=== PATIENT | male | born 1955 | race Caucasian/White ===

== ENCOUNTER 2020-09-21 07:15 | Day surgery (SDC) | payer BC, SELFPAY ==
[2020-09-16 09:31] VITALS: BMI 27.8
[2020-09-16 13:01] VITALS: BMI 27.8
--- NOTE | 2020-09-18 09:28 | P.CONAN_ITS ---
Documented by User: Helen Caban 09/18/20 09:29 HPI - Anesthesia Eval Consult details Narrative: 65yo M for Colonoscopy FORMERLY [facility], [facility] Past Medical History Medical History Hx of renal calculi Post-operative nausea and vomiting Surgical History Surgical History History of prostate surgery Hx of colonoscopy Hx of lithotripsy Social History Social History Smoking Status: Former smoker Use of substances other than those prescribed or required for medical reasons: No Have you been hit, kicked, punched, or otherwise hurt by someone within the past year? If so, by whom?: No Advance Directives Information Provided: No Recently lost weight without trying: No Meds Allergies Allergy/AdvReac Type Severity Reaction Status Date / Time procaine [From Novocain] Allergy Mild RASH Verified 09/16/20 09:35 FRESH FRUIT Allergy Severe ANAPHYLAXIS Uncoded 07/30/20 15:08 Home Medications Medication Instructions Recorded Confirmed Type multivitamin 1 tab PO DAILY 09/16/20 09/16/20 History Exam Exam Date and Time: September 18, 2020 0928 Height,Weight and Vital Signs: Height 5 ft 9 in Weight 85.729 kg Pertinent Lab Results Pertinent Lab Results: Laboratory Tests 04/29/20 04/29/20 06:43 06:43 RBC 4.97 Hgb 15.7 Hct 45.2 Plt Count 204 Sodium 139 Potassium 4.5 Chloride 104 BUN 21 H Creatinine 1.01 Assessment and Plan Assessment Anesthesia Assessment: Chart Reviewed Documented by User: Jesu Morales 09/21/20 08:10 [facility], [facility] Past Medical History Medical History Hx of renal calculi Post-operative nausea and vomiting Surgical History Surgical History History of prostate surgery Hx of colonoscopy Hx of lithotripsy Social History Social History Smoking Status: Former smoker Use of substances other than those prescribed or required for medical reasons: No Have you been hit, kicked, punched, or otherwise hurt by someone within the past year? If so, by whom?: No Advance Directives Information Provided: No Recently lost weight without trying: No Meds Allergies Allergy/AdvReac Type Severity Reaction Status Date / Time procaine [From Novocain] Allergy Mild RASH Verified 09/16/20 09:35 FRESH FRUIT Allergy Severe ANAPHYLAXIS Uncoded 07/30/20 15:08 Home Medications Medication Instructions Recorded Confirmed Type multivitamin 1 tab PO DAILY 09/16/20 09/16/20 History Exam Airway Mallampati Class: II TM Dist: >3cm Neck ROM: Full Loose/Missing/Broken Teeth: No Heart: [id number] Lungs: cta b/l Assessment and Plan Assessment Anesthesia Assessment: Anesthesia Plan Discussed, PAT Visit and Chart Reviewed Final Anesthetic Review NPO: Yes ASA Class: II Final Preanesthetic Review: No Changes in Pt Med Stat, Meds/Allgs Chart Reviewed, Consent Obtained/Reviewed and Anes Risks/Benef Reviewed Patient Risk: Low Procedure Risk: Low Assessment/Block/Sedation in SS: Assess/Block/Sedation-SS Anesthetic Plan Anesthetic Plan: MAC: Disposition: Standard PACU
[2020-09-21 08:03] VITALS: BP 128/80; PULSE 74; RESP 18; TEMP 36.2; O2SAT 95
[2020-09-21] MEDS: Lactated Ringers 1,000 ML 100 ML IVCONT (08:12)
[2020-09-21 09:46] VITALS: BP 96/63; PULSE 57; RESP 16; TEMP 36.1; O2SAT 95
--- NOTE | 2020-09-21 09:47 | PM.OP ---
Brief Operative Note Date of procedure: 09/21/20 Pre-op diagnosis: Screening Post-op diagnosis: other (Diverticulosis, Internal hemorrhoids) Procedure: Colonoscopy to cecum and TI Surgeon: Aiden Berg Anesthesia: MAC Estimated blood loss (mL): 0 Pathology: none sent Condition: stable Disposition: PACU
[2020-09-21 09:59] VITALS: BP 111/76; PULSE 56; RESP 16; O2SAT 95
[2020-09-21 10:15] VITALS: BP 144/97; PULSE 61; RESP 16; TEMP 36.1; O2SAT 95
--- NOTE | 2020-09-21 10:35 | HO.POSTANES ---
Post Anesthesia Evaluation Post Anesthesia Evaluation Vital Signs: Vital Signs Temp Pulse Resp BP Pulse Ox 09/21/20 10:15 97.0 F 61 16 144/97 H 95 09/21/20 09:59 56 16 111/76 95 09/21/20 09:46 97.0 F 57 16 96/63 95 09/21/20 08:03 97.2 F 74 18 128/80 95 Anesthesia: Monitored Mental Status: Awake Pain Control: Satisfactory Nausea/Vomiting: None Hydration: Adequate Anesthesia-Related Issues: No Anes. Related Issues
--- NOTE | 2020-09-21 10:46 | OP_ITS ---
SURGEON: Aiden Berg MD INDICATIONS: The patient presents for evaluation of colorectal cancer screening. Full consent has been obtained from him for this, including risks of bleeding and perforation. PREOPERATIVE DIAGNOSIS: Colorectal cancer screening. POSTOPERATIVE DIAGNOSIS: PROCEDURE PERFORMED: ESTIMATED BLOOD LOSS: COMPLICATIONS: ANESTHESIA: Monitored anesthesia care. ASSISTANTS: SPECIMENS: POSTOPERATIVE DIAGNOSES: Colorectal cancer screening, sigmoid diverticulosis, and small internal hemorrhoids. PROCEDURES PERFORMED: Colonoscopy to cecum and terminal ileum. DESCRIPTION OF PROCEDURE: The patient was placed in the left lateral decubitus position. The digital rectal exam revealed no abnormalities. The Olympus video pediatric colonoscope was entered into the rectum, advanced easily to the cecum. Once in the cecum, I did identify normal-appearing cecal pouch with appendiceal orifice and a normal-appearing ileocecal valve. The terminal ileum was cannulated and appeared normal. The scope was withdrawn back in the colon. The entire cecum and ileocecal valve appeared normal. The scope was slowly withdrawn assessing all mucosal surfaces carefully. Preparation was excellent. I did not visualize any sign of polyps, colitis, or angiodysplasia. There was a mild amount of sigmoid diverticulosis. In the rectum, scope was retroflexed visualizing small internal hemorrhoids, but no other pathology. The rectal mucosa appeared normal. The scope was straightened and withdrawn from the patient. He tolerated the procedure well and was returned to the recovery area in stable condition. IMPRESSION: 1. Mild sigmoid diverticulosis. 2. Small internal hemorrhoids. PLAN: Given the negative exam and negative family history, I would recommend a repeat colonoscopy in 10 years for further screening. He will otherwise see me on a p.r.n. basis. Aiden Berg MD RMJerel/AMANDA / [phone]
== END 2020-09-21 10:45 | disposition home or self-care (01) ==
PROVIDERS: PCP Internal Medicine; Visit Provider Internal Medicine
PROC: 0DJD8ZZ Inspection of Lower Intestinal Tract, Via Natural or Artificial Opening Endoscopic (ICD-10-PCS; CPT 45378; principal; 2020-09-21 08:30)
DX: Z12.11 Encounter for screening for malignant neoplasm of colon (principal); K57.30 Diverticulosis of large intestine without perforation or abscess without bleeding; K64.8 Other hemorrhoids; Z87.442 Personal history of urinary calculi; Z87.891 Personal history of nicotine dependence
CPT/HCPCS: 45378

== ENCOUNTER 2020-10-13 06:34 | Outpatient (REF) | payer BC, SELFPAY ==
[2020-10-13 07:58] LABS: PSA,Total (Free>4and<10) 12.52 ng/mL (0.00-4.00)
== END 2020-10-13 06:35 | disposition home or self-care (01) ==
LOC: HO.LAB 06:34
PROVIDERS: PCP Internal Medicine; Visit Provider Urology
DX: R97.20 Elevated prostate specific antigen [PSA] (principal)
CPT/HCPCS: 84153

== ENCOUNTER → 2020-12-07 08:55 | Outpatient (BNVA) | payer BC, SELFPAY | PROVIDERS: PCP Internal Medicine; Visit Provider Urology ==

== ENCOUNTER 2021-01-14 08:24 | Outpatient (REF) | payer MEDICARE, SELFPAY ==
[2021-01-14 08:59] VITALS: BMI 27.7
[2021-01-14 09:00] VITALS: BP 122/72; PULSE 71; RESP 16; TEMP 36.6; O2SAT 96
--- NOTE | 2021-01-14 09:26 | PM.OP ---
Brief Operative Note Date of Service: 01/14/21 Pre-op diagnosis: elevated PSA Post-op diagnosis: same Procedure: TRUS - measure - prostate berve block - prostate biopsy Surgeon: Kelton Griffith MD Anesthesia: MAC and local Estimated blood loss (mL): 0 Pathology: other (12 core prostate) Condition: stable Disposition: same day
--- NOTE | 2021-01-14 09:27 | W.PM.OPN ---
Operative Note Operative Note Date of Service: 01/14/21 Narrative: Preoperative diagnosis: Elevated PSA Postoperative diagnosis: Elevated PSA Procedure: 1. transrectal ultrasound measurement of prostate 2. transrectal ultrasound-guided pudendal nerve block 3. transrectal ultrasound-guided prostate biopsy 12 core Surgeon: Dr. Kelton Griffith Anesthetic: Local Indications for procedure: Elevated PSA Procedure: After informed consent was verified, the patient was brought into the procedure area and lay left-hand side down on the table. Patient identity confirmed. Perioperative antibiotics confirmed. Gel was placed per rectum Ultrasound probe was placed per rectum The prostate was measured in 3 dimensions Total volume equals 125 gm There were no cystic structures and no calcifications noted and the prostate was homogeneous in nature A ultrasound-guided pudendal nerve block was performed using 10 cc of 1% lidocaine. 8 cc was placed at the base and 2 cc of the apex. A 12 core biopsy was performed with 6 cores each side. Two cores were taken at the apex, mid and base. Cores were spaced between lateral and medial. He tolerated the procedure well. Was able to ambulate to bathroom after 5 minutes. Printed instructions regarding antibiotic use and common side effects such as low-grade temperature and bleeding were given.
== END 2021-01-14 08:25 | disposition home or self-care (01) ==
LOC: HO.MS 08:24
PROVIDERS: PCP Internal Medicine; Visit Provider Urology
PROC: (CPT 55700; principal; 2021-01-14 08:50)
DX: R97.20 Elevated prostate specific antigen [PSA] (principal); Z87.442 Personal history of urinary calculi
CPT/HCPCS: 55700; 76942; 88305

== ENCOUNTER → 2021-01-22 14:13 | Outpatient (BNVA) | payer MEDICARE, SELFPAY | PROVIDERS: PCP Internal Medicine; Visit Provider Urology | CPT/HCPCS: Q3014 ==

== ENCOUNTER 2021-05-18 08:36 | Outpatient (REF) | payer MEDICARE, SELFPAY ==
[2021-05-18 09:52] LABS: PSA,Total (Free>4and<10) 12.52 ng/mL (0.00-4.00)
== END 2021-05-18 08:37 | disposition home or self-care (01) ==
LOC: HO.LAB 08:36
PROVIDERS: PCP Internal Medicine; Visit Provider Urology
DX: N40.1 Benign prostatic hyperplasia with lower urinary tract symptoms (principal); N13.8 Other obstructive and reflux uropathy; R97.20 Elevated prostate specific antigen [PSA]
CPT/HCPCS: 36415; 84153

== ENCOUNTER → 2021-05-28 14:32 | Outpatient (BNVA) | payer MEDICARE, SELFPAY | PROVIDERS: PCP Internal Medicine; Visit Provider Urology | DX: Z13.89 Encounter for screening for other disorder (principal) | CPT/HCPCS: Q3014 ==

== ENCOUNTER → 2021-06-29 13:52 | Outpatient (BNVA) | payer MEDICARE, SELFPAY | PROVIDERS: PCP Internal Medicine; Referring Provider Internal Medicine; Visit Provider Surgery | DX: K40.90 Unilateral inguinal hernia, without obstruction or gangrene, not specified as recurrent (principal) | CPT/HCPCS: 99202 ==

== ENCOUNTER 2021-07-21 06:09 | Day surgery (SDC) | payer MEDICARE, SELFPAY ==
--- NOTE | 2021-07-20 09:05 | HO.ANESPROP2 ---
Documented by User: Helen Caban NP 07/20/21 09:06 HPI - Anesthesia Eval Consult details Narrative: 66yo M for Right Hernia Repair Inguinal with Mesh PMFSH Active Problems Active Problems: All Active Problems (Updated 07/13/21 @ 15:42 by Angeli Monroy RN) BPH w urinary obs/LUTS (Acute) Inguinal hernia (Acute) Right inguinal hernia (Acute) Urgency of micturition (Acute) History of renal calculi (Acute) Elevated PSA (Acute) Past Medical History Medical History (Updated 07/13/21 @ 15:42 by Angeli Monroy RN) Elevated PSA History of non-ST elevation myocardial infarction (NSTEMI) History of renal calculi Post-operative nausea and vomiting Urgency of micturition Family History Family History Mother No problems noted. Father No problems noted. Surgical History Surgical History (Updated 07/13/21 @ 15:50 by Angeli Monroy RN) History of prostate surgery History of tonsillectomy Hx of colonoscopy Hx of lithotripsy Social History Social History Housing: House Alcohol intake: current Alcohol intake frequency: holidays/special occasions only Patient Tobacco Use Status: Never used Tobacco Second Hand Smoke Exposure: No Are you DNR?: No Advance Directives: No Advance Directives Information Provided: Yes Advance Directives on File: No service: No Current occupational status: retired Meds Allergies Allergy/AdvReac Type Severity Reaction Status Date / Time procaine [From Novocain] Allergy Mild RASH Verified 07/13/21 15:53 FRESH FRUIT Allergy Severe ANAPHYLAXIS Uncoded 07/13/21 15:53 Home Medications Medication Instructions Recorded Confirmed Last Taken Type multivitamin 1 tab PO DAILY 09/16/20 07/13/21 Unknown History Exam Exam Date and Time: July 20, [id number] Assessment and Plan Assessment Anesthesia Assessment: Chart Reviewed Documented by User: Oliver Langley MD 07/21/21 07:11 PMF Past Medical History Medical History (Updated 07/13/21 @ 15:42 by Angeli Monroy, JODY) Elevated PSA History of non-ST elevation myocardial infarction (NSTEMI) History of renal calculi Post-operative nausea and vomiting Urgency of micturition Family History Family History Mother No problems noted. Father No problems noted. Surgical History Surgical History (Updated 07/13/21 @ 15:50 by Angeli Monroy RN) History of prostate surgery History of tonsillectomy Hx of colonoscopy Hx of lithotripsy Social History Social History Housing: House Alcohol intake: current Alcohol intake frequency: holidays/special occasions only Patient Tobacco Use Status: Never used Tobacco Second Hand Smoke Exposure: No Are you DNR?: No Advance Directives: No Advance Directives Information Provided: Yes Advance Directives on File: No service: No Current occupational status: retired Meds Allergies Allergy/AdvReac Type Severity Reaction Status Date / Time procaine [From Novocain] Allergy Mild RASH Verified 07/13/21 15:53 FRESH FRUIT Allergy Severe ANAPHYLAXIS Uncoded 07/13/21 15:53 Home Medications Medication Instructions Recorded Confirmed Last Taken Type multivitamin 1 tab PO DAILY 09/16/20 07/13/21 Unknown History Exam Airway Mallampati Class: I TM Dist: >3cm Neck ROM: Full
[2021-07-21] VITALS (10 sets, daily range): BP systolic 108–125; BP diastolic 70–80; PULSE 58–85; RESP 14–18; TEMP 36.2–36.4; O2SAT 95–99; BMI 26.9
[2021-07-21] MEDS: Lactated Ringers 1,000 ML 100 ML IVCONT (06:35)
--- NOTE | 2021-07-21 08:14 | W.PM.OPN ---
Operative Note Operative Note Date of Service: 07/21/21 Narrative: Preoperative diagnosis: Right inguinal hernia Postoperative diagnosis: Same Procedure: Repair of right inguinal hernia with mesh Surgeon: Lawrence Quezada MD Pulmonary Physician: Melanie Maravilla PA-C Anesthesia: General LMA Indications for procedure: 66-year-old male presenting a hernia in the right groin which increases with Valsalva and reduces with light pressure Operative findings: Indirect right inguinal hernia Specimen: Lipoma of the cord, right Estimated blood loss: 2 mL Complications: None Procedure details: Patient was brought to the OR and placed in a supine position. After administering general anesthesia the patient's abdomen was prepped with ChloraPrep and draped in a sterile fashion. A surgical time-out was called the consent confirmed. Patient received preoperative antibiotics and Venodyne boots were in place. Local anesthesia consisting of 0.5% Sensorcaine with epinephrine was then infiltrated over the right inguinal ligament. Incision was then made with a scalpel carried out through subcutaneous tissue, past Tab's fascia, and up to the external oblique aponeurosis. Additional local was infiltrated below the external oblique aponeurosis. This was then incised with a scalpel wide with the Metzenbaum scissors. The spermatic cord was then dissected free from the surrounding inguinal canal. This was retracted using a Joan drain. The floor of the inguinal canal was found to be weak but no definite hernia was identified. Fibers of the cremasteric muscle were then and a hernia identified through the indirect space. A lipoma of the cord was dissected free down to the internal ring. This was then ligated with a 3-0 Polysorb suture. This was excised and sent to pathology for further examination. Attention was then directed to the floor of the inguinal canal. The internal oblique aponeurosis and transversalis aponeurosis was then incised with the lead electrocautery in the preperitoneal space entered. This was further dissected using an open Ray-Magalys sponge. A large extended PHS mesh was then obtained. The circular underlay was deployed into the preperitoneal space. The overlay was then secured to the pubic tubercle conjoined tendon, and shelving edge of the inguinal ligament using a 0 Polysorb suture. A slit was made in the mesh and the mesh wrapped around the spermatic cord at the internal ring. This was then secured to the shelving edge of the inguinal ligament using the 0 Polysorb suture. The wounds were then irrigated with saline solution. Additional local was infiltrated at this time. External oblique aponeurosis was then reapproximated using a 2 0 Polysorb suture. Tab's fascia and dermis reapproximated using interrupted 3-0 Polysorb sutures. Skin was closed using a running subcuticular 4-0 Polysorb suture. Steri-Strips 2 x 2 gauze and Tegaderm were then applied. The patient tolerated the procedure well. Sponge, instrument, needle counts reported as correct. The patient was transferred to PACU in stable condition.
--- NOTE | 2021-07-21 08:20 | MHC.SHP ---
Pre-Procedural Eval Section A Date of Service: 07/21/21 The patient is an INPATIENT: No Changes since office visit: Yes Patient answered all questions; No Cold of Flu in the past 2 weeks, No New Medical Problems and No Changes in Medication The History & Physical has been completed within 30 days and I have reviewed it.: Yes Section B Chief Complaint: Inguinal Hernia Allergies: Allergies Allergy/AdvReac Type Severity Reaction Status Date / Time procaine [From Novocain] Allergy Mild RASH Verified 07/13/21 15:53 FRESH FRUIT Allergy Severe ANAPHYLAXIS Uncoded 07/13/21 15:53 Plan Diagnosis/Plan: Unchanged I have reviewed the history and physical and performed a pertinent physical examination on my patient. No changes have occurred unless specified.
[2021-07-21] MEDS: Acetaminophen 325 MG TABLET 650 MG PO (08:55)
[2021-07-21] MEDS: oxyCODONE HCl Immed Release 5 MG TABLET PO (08:55)
== END 2021-07-21 11:55 | disposition home or self-care (01) ==
PROVIDERS: PCP Internal Medicine; Visit Provider Surgery
PROC: (CPT 49505; principal; 2021-07-21 07:30)
DX: K40.90 Unilateral inguinal hernia, without obstruction or gangrene, not specified as recurrent (principal); D17.6 Benign lipomatous neoplasm of spermatic cord
CPT/HCPCS: 49505; 55520; 88304; C1781; J0690; J1100; J2250; J2405; J3010

== ENCOUNTER → 2021-07-29 09:32 | Outpatient (BNVA) | payer MEDICARE, SELFPAY | PROVIDERS: PCP Internal Medicine; Referring Provider Internal Medicine; Visit Provider Surgery | DX: K40.90 Unilateral inguinal hernia, without obstruction or gangrene, not specified as recurrent (principal) | CPT/HCPCS: 99212 ==

== ENCOUNTER → 2021-09-02 10:06 | Outpatient (BNVA) | payer MEDICARE, SELFPAY | PROVIDERS: PCP Internal Medicine; Referring Provider Internal Medicine; Visit Provider Surgery | DX: Z48.815 Encounter for surgical aftercare following surgery on the digestive system (principal); Z87.19 Personal history of other diseases of the digestive system | CPT/HCPCS: 99212 ==

== ENCOUNTER 2021-09-20 09:35 | Outpatient (REF) | payer MEDICARE, SELFPAY ==
--- NOTE | ~2021-09-20 | XR_ITS ---
EXAMINATION: XR CERVICAL SPINE CLINICAL INFORMATION: Cervicalgia. COMPARISON: Cervical spine done on 02/24/2013. TECHNIQUE: 3 views of the cervical spine were obtained. FINDINGS: Moderate to severe degenerative spondylosis related changes are noted at C5-C6 and mild to moderate degenerative spondylosis at C4-C5 and C6-C7, shows progression since 02/24/2013. The heights of the cervical vertebrae are well-maintained. The remainder of the disc spaces are maintained. Posterior appendages are intact. Facet joint arthritic changes are noted bilaterally. The spinal soft tissues are unremarkable. The C1-C2 alignment is intact. Both lung apices are clear. XR/XR cervical spine 2V IMPRESSION: Multilevel degenerative spondylosis, shows progression since prior study dated 02/24/2013.
== END 2021-09-20 09:36 | disposition home or self-care (01) ==
LOC: HO.XRAY 09:35
PROVIDERS: PCP Internal Medicine; Visit Provider Internal Medicine
DX: M54.2 Cervicalgia (principal)
CPT/HCPCS: 72040

== ENCOUNTER 2022-05-18 07:12 | Outpatient (REF) | payer MEDICARE, SELFPAY ==
[2022-05-18 08:28] LABS: PSA,Total (Free>4and<10) 12.89 ng/mL (0.00-4.00)
== END 2022-05-18 07:13 | disposition home or self-care (01) ==
LOC: HO.LAB 07:12
PROVIDERS: PCP Internal Medicine; Visit Provider Urology
DX: Z12.5 Encounter for screening for malignant neoplasm of prostate (principal); N13.8 Other obstructive and reflux uropathy; N40.1 Benign prostatic hyperplasia with lower urinary tract symptoms
CPT/HCPCS: 36415; 84153

== ENCOUNTER → 2022-05-26 10:02 | Outpatient (BNVA) | payer MEDICARE, SELFPAY | PROVIDERS: PCP Internal Medicine; Visit Provider Urology | DX: R97.20 Elevated prostate specific antigen [PSA] (principal); N40.1 Benign prostatic hyperplasia with lower urinary tract symptoms; N13.8 Other obstructive and reflux uropathy | CPT/HCPCS: Q3014 ==

== ENCOUNTER 2022-09-12 07:38 | Outpatient (REF) | payer MEDICARE, SELFPAY ==
[2022-09-12 09:28] LABS: PSA,Total (Free>4and<10) 12.15 ng/mL (0.00-4.00)
== END 2022-09-12 07:39 | disposition home or self-care (01) ==
LOC: HO.LAB 07:38
PROVIDERS: PCP Internal Medicine; Visit Provider Urology
DX: R97.20 Elevated prostate specific antigen [PSA] (principal); Z12.5 Encounter for screening for malignant neoplasm of prostate
CPT/HCPCS: 36415; 84153

== ENCOUNTER → 2022-09-27 08:51 | Outpatient (BNVA) | payer MEDICARE, SELFPAY | PROVIDERS: PCP Internal Medicine; Visit Provider Urology | DX: N40.1 Benign prostatic hyperplasia with lower urinary tract symptoms (principal); N13.8 Other obstructive and reflux uropathy; R97.20 Elevated prostate specific antigen [PSA]; Z87.442 Personal history of urinary calculi | CPT/HCPCS: 99212 ==

== ENCOUNTER 2022-12-22 07:08 | Outpatient (REF) | payer MEDICARE, SELFPAY ==
--- NOTE | 2022-12-22 07:14 | ECG_ITS ---
Test Reason : palpitations Blood Pressure : / mmHG Vent. Rate : 081 BPM Atrial Rate : 081 BPM P-R Int : 150 ms QRS Dur : 088 ms QT Int : 368 ms P-R-T Axes : 056 075 068 degrees QTc Int : 427 ms Normal sinus rhythm Normal ECG When compared with ECG of 29-MAR-2013 19:36, No significant change was found Referred By: Forrest Butterfield Electronically Signed By:REYES MONET MD
[2022-12-22 07:16] LABS: MANUAL DIFF FLAG NO
[2022-12-22 07:43] LABS: Basophils Percent Auto 0.8 % (0-2); Eosinophils Absolute Auto 0.1 X10*3/uL (0.0-0.4); Eosinophils Percent Auto 3.6 % (0-4); Hemoglobin 15.8 g/dl (14.0-18.0); Lymphocytes Absolute Auto 1.3 X10*3/uL (1.2-4.9); Lymphocytes Percent Auto 34.4 % (20-40); Mean Corpuscular HGB Conc 34.3 g/dl (31.0-36.0); Mean Corpuscular Hemoglobin 31.2 pg (27.0-33.0); Mean Corpuscular Volume 90.7 fL (80.0-98.0); Mean Platelet Volume 10.2 fL (9.4-12.4); Monocytes Absolute Auto 0.3 X10*3/uL (0.1-1.2); Monocytes Percent Auto 8.7 % (2-11); Neutrophils Percent Auto 52.5 % (45-73); Platelet Count 215 X10*3/uL (160-400); Red Blood Count 5.07 X10*6/uL (4.60-5.80); Red Cell Distribution Width 12.9 % (11.0-16.0); White Blood Count 3.9 X10*3/uL (4.8-10.8)
[2022-12-22 09:01] LABS: Alanine Aminotransferase 27 U/L (0-40); Albumin Level 4.6 g/dL (3.5-5.0); Alkaline Phosphatase 65 U/L (39-117); Anion Gap 18 (12-20); Aspartate Amino Transferase 22 U/L (5-37); Blood Urea Nitrogen 18 mg/dL (9-16); Carbon Dioxide 24 mmol/L (22-29); Chloride 104 mmol/L (96-108); Cholesterol 193 mg/dL; Estimated Glomerular Filt Rate > 60; Glucose Fasting 96 mg/dL (60-99); HDL Cholesterol 47 mg/dL; LDL Cholesterol Calculated 122 mg/dl; Potassium 4.7 mmol/L (3.3-5.1); Sodium 141 mmol/L (135-145); Thyroid Stimulating Hormone 1.57 uIU/mL (0.32-4.0); Total Protein 6.9 g/dL (6.5-8.0); Triglycerides 122 mg/dL
[2022-12-22 09:17] LABS: Calcium 9.8 mg/dL (8.4-10.2)
== END 2022-12-22 07:09 | disposition home or self-care (01) ==
LOC: HO.LAB 07:08
PROVIDERS: PCP Internal Medicine; Visit Provider Internal Medicine
DX: R00.2 Palpitations (principal); E03.9 Hypothyroidism, unspecified; E78.5 Hyperlipidemia, unspecified; D64.9 Anemia, unspecified; N28.9 Disorder of kidney and ureter, unspecified
CPT/HCPCS: 36415; 80053; 80061; 84443; 85025; 93005

== ENCOUNTER → 2023-03-20 14:17 | Outpatient (BNVA) | payer MEDICARE, SELFPAY | PROVIDERS: PCP Internal Medicine; Referring Provider Internal Medicine; Visit Provider Internal Medicine | DX: R00.2 Palpitations (principal) | CPT/HCPCS: 99202 ==

== ENCOUNTER → 2023-04-11 07:55 | Outpatient (REF) | payer MEDICARE, SELFPAY ==
--- NOTE | 2023-04-11 07:59 | CA_ITS ---
Transthoracic Echocardiogram Patient (Last, First, Middle): Carrington Pineda, Gender: Male Date of : 1955 Age: 67 Procedure Date: 04/11/2023 Procedure Type: Transthoracic Echocardiogram Location: OP Height: 175.26 cm Weight: 86.18 kg BSA: 2.02 m2 Heart Rate: bpm BP: 122 / 78 mmHg Chiseler Head: MAXIMO Referring MD: Juan Antonio Edwards MD Materials Management Supervisor: Oumar Melo MD Symptoms: R00.2 - Palpitations Study Quality: Fair with contrast ECG Rhythm: Sinus Conclusions: - 1. Normal LV systolic function with mild LVH with grade 1 diastolic dysfunction 2. Moderately dilated left atrium 3. Normal cardiac valvular Dopplers 4. Normal measured RV systolic pressure 5. No gross pericardial effusion Findings Procedure Information Contrast agent, definity, is being given per protocol without apparent complications. Left Ventricle Normal left ventricular size and systolic function. There is mildly increased left ventricular wall thickness. The visually estimated ejection fraction is between 55-60%. Spectral Doppler is indicative of an impaired relaxation filling pattern. E/E prime ratio is <8, consistent with normal filling pressures. Evidence suggests grade I (mild) diastolic dysfunction. Right Ventricle The right ventricle was not well visualized. There is normal right ventricular systolic function. Atria The left atrium is moderately dilated. There is no evidence of interatrial shunt. The right atrium is likely dilated. Aortic Valve The aortic valve was not well visualized. There is mild calcification of the aortic valve. There is no aortic valve stenosis. There is no aortic valve regurgitation. Mitral Valve There is mild anterior and posterior mitral leaflet thickening. There is mild mitral valve regurgitation. There is no mitral valve stenosis. Pulmonic Valve The pulmonic valve was not well visualized. Tricuspid Valve Likely normal tricuspid valve structure and function. The right ventricular systolic pressure is 11 mmHg. There is no evidence of pulmonary hypertension. Great Vessels The pulmonary artery was not well visualized. There is mild dilatation of the ascending aorta measuring 3.80 cm. Venous The inferior vena cava is normal in size and collapses greater than 50% with inspiration. Pericardium/Pleural There is no evidence of pericardial effusion. Prior Study Comparison no previous study in last 5 years for comparison Measurements 2D Linear Measurements IVSd: 1.20 0.6-0.9/0.6-1.0 cm LVIDd: 4.70 3.9-5.3/4.2-5.9 cm LVIDd Index: 2.33 2.4-3.2/2.2-3.1 cm/m2 LVIDs: 3.58 2.0-3.6 cm LVPWd: 1.24 0.7-1.1 cm LA Diam: 3.70 2.7-3.8/3.0-4.0 cm LAIDs Index: 1.83 1.5-2.3 cm/m2 LV Mass: 270.58 67-162/88-224 g LV Mass Index: 133.95 43-95/49-115 g/m2 LVOT Diam: 2.40 3.0+(-)1.3 cm 2D Systolic Function EF 4C: 54.70 >55% EF 2C: 57.40 >55% EF BiP: 55.90 >55% Mitral Valve MV Pk E: 0.51 MV PK A: 0.67 MV Decel Time: 218.00 E/A: 0.80 E'Lateral: 6.31 E'Medial: 5.55 E/E' Med: 9.30 E/E' Lat: 8.10 PHT: 64.00 MVA PHT: 3.44 Decel Stark: 2.36 Aortic Valve AoV Pk Giovanny: 1.05 AoV Mn Giovanny: 0.80 AoV VTI: 0.25 AoV Pk Grad: 4.00 Aov Mn Grad: 3.00 ALEXIS Cont.VTI: 3.45 LVOT LVOT Pk Giovanny: 0.87 LVOT Mn Giovanny: 0.61 LVOT VTI: 0.19 LVOT Pk Grad: 3.00 LVOT Mn Grad: 2.00 LVOT Diam: 2.40 LVOT Area: 4.52 Diastolic Function MV Pk E: 0.51 MV Pk A: 0.67 E/A: 0.80 E'Medial: 5.55 E/E' Med: 9.30 E' Laterial: 6.31 E/E' Lat: 8.10 Right Ventricle TAPSE (mm): 23.50 TVS' Giovanny: 13.70 Tricuspid Valve TR Pk Giovanny: 1.42 TR Pk Grad: 8.00 RA Press: 3.00 RVSP: 11.00 Great Vessels Aorta Sinus of Valsalva: 3.90 2.0-3.[address] Ridge: 3.12 1.7-3.4 cm Ao Asc: 3.80 2.1-3.4 cm Ao Arch: 3.40 Updated in Other Vendor System with Status of Final Oumar Melo MD electronically signed on 04/11/2023 12:19:15 PM with status of Final
--- NOTE | 2023-04-11 07:59 | HM_ITS ---
* Total monitoring time 7 days. * Underlying rhythm is sinus with an average ventricular rate of 80/Min. * Atrial fibrillation versus flutter burden 3.8%. Longest episode 5 hours 38 minutes. Fastest episode 195/min. * Frequent supraventricular ectopy. * Rare PVCs. * No significant pauses or AV blocks. * Patient markers and diary events correlate with arrhythmia episodes above. MTDD
== END ==
LOC: HO.CARD 07:55
PROVIDERS: PCP Internal Medicine; Visit Provider Internal Medicine
DX: R00.2 Palpitations (principal)
CPT/HCPCS: 93242; 93306; Q9957

== ENCOUNTER 2023-05-26 13:21 | Outpatient (AMB) | payer MEDICARE, SELFPAY ==
[2023-05-26 13:38] VITALS: BP 115/80; PULSE 76; BMI 28.0
--- NOTE | 2023-05-26 13:38 | MHC.OFFVIS ---
Intake Vital Signs 05/26/23 13:38 Height 5 ft 9 in Weight 189 lb 9.561 oz BMI 28.0 BP 115/80 Blood Pressure Location Lt brachial Position Sitting Pulse 76 Intake Visit Reasons: 2 month f/up after testing per HS Intake Note: 2 month f/u after testing Supervisor Cd Area Required: No Allergies procaine [From Novocain] Allergy (Mild, Verified 05/26/23 13:46) RASH FRESH FRUIT Allergy (Severe, Uncoded 03/20/23 14:26) ANAPHYLAXIS Medication List - Last Reconciled 05/26/23 by Donna Cash, TOUR MANAGER-C betamethasone dipropionate 0.05% 1 appl topical DAILY PRN metoprolol succinate ER 25 mg PO DAILY multivitamin 1 tab PO DAILY HPI 2 month f/up after testing per HS HPI Details Carrington is a 67-year-old male with past medical history of Reported prior [place],heart palpitations who recently underwent further evaluation with CTA of coronary arteries, echocardiogram and Holter monitor and now presents for follow-up. Today he reports he has been noticing heart palpitations since last fall. There intermittent and can last 10 minutes to an hour. The episodes are random without any known triggers or pattern. When they resolved they do spontaneous loop without specific treatment. He feels well with no associated symptoms. He has not had any concerning chest discomfort, shortness of breath, dizziness, presyncope, syncope, falls. No PND, orthopnea or edema. He reports being physically active. Drinks decaf beverages. Takes meds as directed.. [facility] Medical History Elevated PSA History of non-ST elevation myocardial infarction (NSTEMI) History of renal calculi Post-operative nausea and vomiting Urgency of micturition Surgical History History of prostate surgery History of right inguinal hernia repair History of tonsillectomy Hx of colonoscopy Hx of lithotripsy S/P right inguinal hernia repair (07/21/21) Family History Mother No problems noted. Father No problems noted. Social History Housing: House Alcohol intake: current Alcohol intake frequency: holidays/special occasions only Patient Tobacco Use Status: Never used Tobacco e-Cigarette/Vaping Use: Never Used Second Hand Smoke Exposure: No service: No Current occupational status: retired Cognitive needs: No Hearing needs: No Vision needs: No Review of Systems ENT Reports dizziness Card Denies chest pain, Denies chest pain at rest, Denies chest pain with activity, Denies rapid heart rate, Denies pedal edema, Denies edema, Denies leg edema, Denies lightheadedness, Denies palpitations, Denies dyspnea, Denies dyspnea on exertion and Denies orthopnea Resp Denies cough, Denies dyspnea and Denies dyspnea on exertion GI Denies hematochezia and Denies change in stool character Musc Denies abnormal gait, Reports limited range of motion, Reports muscle cramps, Denies muscle weakness, Denies numbness, Denies radiating pain into limb, Denies stiffness and Denies tingling Neuro Denies abnormal gait, Reports dizziness, Denies numbness and Denies tingling Endo Denies palpitations Physical Exam Vital Signs: Last Vital Signs Pulse 76 05/26/23 13:38 BP 115/80 05/26/23 13:38 BMI result Body Mass Index 28.0 Const General: cooperative, healthy appearing, comfortable and no acute distress Orientation/consciousness: patient oriented x3 Neck Neck: Yes normal visual inspection Resp Effort & Inspection: normal respiratory effort Auscultation: clear to auscultation bilaterally, no crackles, no rales, no rhonchi and no wheezes Cardio Jugular venous distension: no JVD Rate: regular rate Rhythm: regular rhythm Heart sounds: S1 normal heart sound present, S2 normal heart sound present, no murmurs and no rubs Neuro General: patient oriented x3 Extrem General: Yes normal to inspection Psych Appearance: grossly normal Mental Status: mental status grossly normal Speech and movement: Normal speech and movement present Office Procedures EKG Details: Today, read by me, SR with PAC and nonspecific T wave abn, rate 76, QTc 465ms [id number], Complete Assessment & Plan Assessment & Plan (1) Intermittent palpitations: Code(s): R00.2 - Palpitations Plan: Report of intermittent heart palpitations as described above. Echocardiogram done 04/11/2023 shows EF 55-60%, grade 1 diastolic dysfunction, moderate dilated left atrium, normal valves. A Holter monitor done on 04/11 for 7 days shows sinus rhythm with average heart rate 80, atrial fibrillation 5.8% of time with longest episode 5 hours and 38 minutes with heart rate up to 195 max.. chads Vasc score of 1 with age. Following Holter reading he was started on metoprolol but tells me he did not start taking it as of yet. Instructed to take metoprolol XL 25 mg daily. Diagnosis of paroxysmal atrial fibrillation reviewed with him, stroke risk discussed. Instructed to call if he continues to have frequent palpitations and then metoprolol dose can be increased. On exam today his pulse rate is 76 and regular. He is not noticing heart palpitation at present. his history includes a prior NSTEMI and is part of his cardiac evaluation he underwent a CTA of the coronary arteries which showed normal coronaries. Patient was informed of this and all the above. Cardiology follow-up in 4-6 weeks to reassess frequency of AF episodes and determine if further treatment is warranted (2) Paroxysmal atrial fibrillation: Code(s): I48.0 - Paroxysmal atrial fibrillation Coding Level of Care Code Est Pt Level 4 (99275) Diagnoses Intermittent palpitations R00.2 Paroxysmal atrial fibrillation I48.0 CPT Codes EKG - CPT: [id number]-[id number], Complete ([id number]) Time Spent (min) 26 Comment chart review, document, interview, assess
== END 2023-05-26 14:38 | disposition home or self-care (01) ==
PROVIDERS: Visit Provider Nurse Practitioner Family
DX: R00.2 Palpitations (principal); I48.0 Paroxysmal atrial fibrillation
CPT/HCPCS: 93010; 99214

== ENCOUNTER → 2023-05-26 13:21 | Outpatient (BNVA) | payer MEDICARE, SELFPAY | PROVIDERS: Visit Provider Nurse Practitioner Family | DX: R00.2 Palpitations (principal); I48.0 Paroxysmal atrial fibrillation | CPT/HCPCS: 93005; 99212 ==

== ENCOUNTER 2023-07-10 09:43 | Outpatient (AMB) | payer MEDICARE, SELFPAY ==
--- NOTE | 2023-07-10 09:48 | A.OFFVIS_ITS ---
Intake Vital Signs 07/10/23 09:49 Height 5 ft 9 in Weight 192 lb 10.944 oz BMI 28.5 BP 110/80 Blood Pressure Location Lt brachial Position Sitting Pulse 56 Intake Visit Reasons: 4-6 WEEK FUP PER DC Intake Note: follow up Reservations Sales Supervisor Required: No Accompanied by: Self / Same As Patient Allergies procaine [From Novocain] Allergy (Mild, Verified 07/10/23 09:52) RASH FRESH FRUIT Allergy (Severe, Uncoded 07/10/23 09:52) ANAPHYLAXIS Medication List - Last Reconciled 07/10/23 by Juan Antonio Edwards MD betamethasone dipropionate 0.05% 1 appl topical DAILY PRN metoprolol succinate ER 25 mg PO DAILY multivitamin 1 tab PO DAILY HPI HPI Comments History of Present Illness Details Carrington returns for follow-up. Recently seen in consultation regarding palpitations. Then underwent monitoring that showed atrial fibrillation/flutter with rapid rates. He was started on beta-blockers. He states he still gets some palpitations. Not as much as before but reduced. No other cardiac complaints. He also underwent coronary CTA that shows no significant findings. Not yet on anticoagulation. [facility] Medical History Elevated PSA History of non-ST elevation myocardial infarction (NSTEMI) History of renal calculi Post-operative nausea and vomiting Urgency of micturition Surgical History History of prostate surgery History of right inguinal hernia repair History of tonsillectomy Hx of colonoscopy Hx of lithotripsy S/P right inguinal hernia repair (07/21/21) Family History Mother No problems noted. Father No problems noted. Social History Housing: House Alcohol intake: current Alcohol intake frequency: holidays/special occasions only Patient Tobacco Use Status: Never used Tobacco e-Cigarette/Vaping Use: Never Used Second Hand Smoke Exposure: No service: No Current occupational status: retired Cognitive needs: No Hearing needs: No Vision needs: No Review of Systems ENT Reports dizziness Card Denies chest pain, Denies chest pain at rest, Denies chest pain with activity, Denies rapid heart rate, Denies pedal edema, Denies edema, Denies leg edema, Denies lightheadedness, Denies palpitations, Denies dyspnea, Denies dyspnea on exertion and Denies orthopnea Resp Denies cough, Denies dyspnea and Denies dyspnea on exertion GI Denies hematochezia and Denies change in stool character Musc Denies abnormal gait, Reports limited range of motion, Reports muscle cramps, Denies muscle weakness, Denies numbness, Denies radiating pain into limb, Denies stiffness and Denies tingling Neuro Denies abnormal gait, Reports dizziness, Denies numbness and Denies tingling Endo Denies palpitations Physical Exam Vital Signs: Last Vital Signs Pulse 56 07/10/23 09:49 BP 110/80 07/10/23 09:49 BMI result Body Mass Index 28.5 Const General: comfortable and no acute distress Orientation/consciousness: patient oriented x3 HEENT Other: Unremarkable Head: Yes normal to inspection Neck Neck: Yes normal visual inspection Chest Chest palpation & inspection: normal inspection of the chest Resp Auscultation: clear to auscultation bilaterally Cardio Palpation: normal PMI Heart sounds: S1 normal heart sound present, S2 normal heart sound present, no gallops, no murmurs and no rubs GI Palpation (GI): Soft to palpation Back/Spine/Pelvis Other: unremarkable Skin General skin exam: no rashes or lesions noted Neuro General: patient oriented x3 Extrem General: Yes normal to inspection Psych Mental Status: mental status grossly normal Assessment & Plan Assessment & Plan (1) Paroxysmal atrial fibrillation: Code(s): I48.0 - Paroxysmal atrial fibrillation (2) Encounter for anticoagulation discussion and counseling: Code(s): Z71.89 - Other specified counseling Plan Cardiac studies reviewed. Echocardiogram with LVEF of 55-60%. Moderately dilated left atrium. Otherwise unremarkable. Holter shows underlying atrial fibrillation/flutter with rapid rate. Underlying rhythm is sinus. Overall burden of 3.8%. Coronary CTA reported normal. Overall, he is generally stable but still gets episodes. His blood pressure is on the lower side. We can try going up on the metoprolol from 25mg once a day to twice a day. If any side effects, will have to cut back. In that case, other options would be another agent like flecainide versus ablation. We discussed about both today. We will reassess in 3 months with another Holter. Otherwise, he does not have much of thromboembolic risk but still at age of 68, with fairly recurrent episodes, would still recommend starting anticoagulation. We discussed about the pros and cons and he is agreeable. Start Eliquis 5 mg b.i.d.. Follow-up in 3 months with another Holter. Orders: Orders ECG 7 day holter monitor 3 Months I48.0 - Paroxysmal atrial fibrillation Medications: New 2 metoprolol tartrate 25 mg PO BID 90 days 180 tabs 3RF apixaban (Eliquis) 5 mg PO BID 90 days 180 tabs 3RF Discontinued metoprolol succinate ER Discontinued Reason: Doctor's Order 25 mg PO DAILY 30 tabs 3RF Coding Level of Care Code Est Pt Level 4 (86545) Diagnoses Paroxysmal atrial fibrillation I48.0 Encounter for anticoagulation discussion and counseling Z71.89
[2023-07-10 09:49] VITALS: BP 110/80; PULSE 56; BMI 28.5
== END 2023-07-10 10:12 | disposition home or self-care (01) ==
PROVIDERS: PCP Internal Medicine; Referring Provider Internal Medicine; Visit Provider Internal Medicine
DX: I48.0 Paroxysmal atrial fibrillation (principal); Z71.89 Other specified counseling
CPT/HCPCS: 99214

== ENCOUNTER → 2023-07-10 09:43 | Outpatient (BNVA) | payer MEDICARE, SELFPAY | PROVIDERS: PCP Internal Medicine; Referring Provider Internal Medicine; Visit Provider Internal Medicine | DX: I48.0 Paroxysmal atrial fibrillation (principal); I21.4 Non-ST elevation (NSTEMI) myocardial infarction; Z71.89 Other specified counseling | CPT/HCPCS: 99212 ==

== ENCOUNTER 2023-09-20 07:57 | Outpatient (REF) | payer MEDICARE, SELFPAY ==
--- NOTE | ~2023-09-20 | US_ITS ---
EXAMINATION: US RETROPERITONEAL LIMITED (RENAL ONLY) CLINICAL INFORMATION: Personal history of urinary calculi. COMPARISON: Limited retroperitoneal (renal only) ultrasounds dated 10/03/2018 and 03/15/2016. CT abdomen and pelvis without and with contrast dated 01/05/2017. TECHNIQUE: Real-time imaging of the kidneys. FINDINGS: RIGHT KIDNEY: 11.2 x 4.9 x 5.8 cm (SAG x AP x TRV). The kidney is normal in size, contour, and echogenicity. Renal cortical thickness is normal. No renal calculi or hydronephrosis. Lower pole cyst measures 7 x 5 x 7 mm. Midpole cyst measures 0.8 x 1.0 x 0.9 cm. LEFT KIDNEY: 11.6 x 5.7 x 4.6 cm (SAG x AP x TRV). The kidney is normal in size, contour, and echogenicity. Renal cortical thickness is normal. No renal calculi or hydronephrosis. Lower pole cyst measures 2.3 x 2.7 x 2.8 cm. Scattered hepatic cysts. These were previously demonstrated on CT performed 01/05/2017. US/US renal BI IMPRESSION: Bilateral renal cysts. No further imaging follow-up is needed.
== END 2023-09-20 07:58 | disposition home or self-care (01) ==
LOC: HO.US 07:57
PROVIDERS: PCP Internal Medicine; Visit Provider Urology
DX: Z87.442 Personal history of urinary calculi (principal)
CPT/HCPCS: 76775

== ENCOUNTER → 2023-09-26 07:26 | Outpatient (REF) | payer MEDICARE, SELFPAY ==
--- NOTE | 2023-09-26 07:34 | HM_ITS ---
* Total monitoring time 7 days. * Underlying rhythm is sinus. Average ventricular rate 66/Min. Range 47 to 155/Min. * Atrial fibrillation episodes noted. Overall burden 2.4%. Fastest episode 155/Min. Longest 3 hours and 32 minutes. * Occasional supraventricular ectopy. * Rare ventricular ectopy. * No significant pauses or AV blocks. * Rapid/fast heartbeat in diary correlates with atrial fibrillation with rapid rate. Another occasion, it correlates with supraventricular ectopy. MTDD
[2023-09-26 09:14] LABS: PSA,Total (Free>4and<10) 11.11 ng/mL (0.00-4.00)
== END ==
LOC: HO.CARD 07:26
PROVIDERS: Absent Provider Urology; PCP Internal Medicine; Visit Provider Internal Medicine
DX: Z12.5 Encounter for screening for malignant neoplasm of prostate (principal); I48.0 Paroxysmal atrial fibrillation; N40.1 Benign prostatic hyperplasia with lower urinary tract symptoms; N13.8 Other obstructive and reflux uropathy
CPT/HCPCS: 36415; 84153; 93242

== ENCOUNTER → 2023-09-26 07:34 | Outpatient (BNV) | payer MEDICARE, SELFPAY | PROVIDERS: Absent Provider Urology; PCP Internal Medicine; Visit Provider Internal Medicine | DX: I48.0 Paroxysmal atrial fibrillation (principal) | CPT/HCPCS: 93244 ==

== ENCOUNTER 2023-09-29 09:20 | Outpatient (AMB) | payer MEDICARE, SELFPAY ==
--- NOTE | 2023-09-29 09:37 | A.OFFVIS_ITS ---
Intake Intake Visit Reasons: 1Y PSA/US(set) Intake Note: Patient is Present for Follow Up PSA/US Urology Medication: None Antibiotic Allergies:None Blood Thinners: Eliquis Allergies procaine [From Novocain] Allergy (Mild, Verified 09/29/23 09:41) RASH FRESH FRUIT Allergy (Severe, Uncoded 09/29/23 09:41) ANAPHYLAXIS HPI HPI Comments History of Present Illness Details Carrington is a pleasant male. He is a patient of Dr. Chambers. he is seen for the following urologic condition - elevated PSA - lower urinary tract symptoms - nephrolithiasis PSA remains elevated but stable Prostate MRI consistent Recommend office cystoscopy some weakness of stream Lower urinary tract symptoms Laser prostatectomy 04/2013 Has had good stability with effective urination Minimal nocturia Elevated PSA MRI - 06/03 - 150 g prostate, PI-RADS 3 inter mediate suspicion 1 area otherwise no prominent changes Large prostate 125 mg PSA 2020 nicko from 8-12.5 - 06/03 12.9, 09/03 12, 10/05 11 Prostate biopsy - performed 01/31 12.52 Negative Tried finasteride - January 2021 but did not tolerate Understands there is a risk of delay in diagnosis Nephrolithiasis Stable ultrasound with renal cyst PFSH Medical History History of non-ST elevation myocardial infarction (NSTEMI) Urgency of micturition History of renal calculi Elevated PSA Post-operative nausea and vomiting Surgical History History of right inguinal hernia repair S/P right inguinal hernia repair (07/21/21) History of tonsillectomy History of prostate surgery Hx of colonoscopy Hx of lithotripsy Family History Mother No problems noted. Father No problems noted. Social History Housing: House Alcohol intake: current Alcohol intake frequency: holidays/special occasions only Patient Tobacco Use Status: Never used Tobacco e-Cigarette/Vaping Use: Never Used Second Hand Smoke Exposure: No service: No Current occupational status: retired Cognitive needs: No Hearing needs: No Vision needs: No Review of Systems Const Denies chills and Denies fever(s) Card Reports no additional complaints and Denies syncope Resp Denies cough GI Denies abdominal pain and Denies heartburn Reports as per HPI and Denies change in libido Neuro Denies syncope Psych Denies change in libido Endo Denies change in libido Physical Exam Const General: cooperative, healthy appearing, comfortable and no acute distress Orientation/consciousness: patient oriented x3 HEENT Face and sinus: Yes normal facial exam Mouth: moist mucous membranes Neck Neck: Yes normal visual inspection, Yes full ROM and Yes trachea midline Chest Chest palpation & inspection: normal inspection of the chest Resp Effort & Inspection: normal respiratory effort, able to speak in complete sentences and no respiratory distress GI Inspection: Yes normal to inspection Back/Spine/Pelvis Cervical Spine: normal cervical lordosis Thoracic/Lumbar Spine: thoracic and lumbar spine normal to inspection Skin General skin exam: no rashes or lesions noted Neuro General: patient oriented x3, gait normal, tone normal and moves all extremities Extrem General: Yes normal to inspection and Yes capillary refill normal Assessment & Plan Assessment & Plan (1) BPH w urinary obs/LUTS: Code(s): N40.1 - Benign prostatic hyperplasia with lower urinary tract symptoms; N13.8 - Other obstructive and reflux uropathy (2) Elevated PSA: Code(s): R97.20 - Elevated prostate specific antigen [PSA] (3) History of renal calculi: Code(s): Z87.442 - Personal history of urinary calculi Plan Office cystoscopy Orders: Orders Prostate Specific Antigen 09/26/23 R97.20 - Elevated prostate specific antigen [PSA] Patient Instructions: Imaging studies, laboratory and physical exam results were discussed and reviewed in detail. No major barriers to patient understanding were identified. An opportunity to ask questions regarding the treatment plan was provided. All questions were answered. The patient expressed understanding and agreement with the above treatment plan. The patient is aware they should contact our office by phone for worsening of their current condition or the appearance of new urologic symptoms. Compliance is encouraged with any medications and followup testing that is ordered. It is a privilege to participate in the urologic care of your patient. If you have any questions or concerns regarding treatment for the above conditions, or other urologic issues, please do not hesitate to contact me. The office telephone contact is [phone]. This note is constructed using voice recognition software. While every effort has been made to ensure accuracy aviation maintenance technician errors may have been included. Yours sincerely, Dr Kelton Griffith MD, [facility] - Urology Providers of Expert, Compassionate Care for the Genitourinary System Coding Level of Care Code Est Pt Level 4 (10170) Diagnoses BPH w urinary obs/LUTS N40.1; N13.8 Elevated PSA R97.20 History of renal calculi Z87.442
== END 2023-09-29 10:26 | disposition home or self-care (01) ==
PROVIDERS: Visit Provider Urology
DX: N40.1 Benign prostatic hyperplasia with lower urinary tract symptoms (principal); N13.8 Other obstructive and reflux uropathy; R97.20 Elevated prostate specific antigen [PSA]; Z87.442 Personal history of urinary calculi
CPT/HCPCS: 99214

== ENCOUNTER → 2023-09-29 09:20 | Outpatient (BNVA) | payer MEDICARE, SELFPAY | PROVIDERS: Visit Provider Urology | DX: N40.1 Benign prostatic hyperplasia with lower urinary tract symptoms (principal); N13.8 Other obstructive and reflux uropathy; R97.20 Elevated prostate specific antigen [PSA]; Z87.442 Personal history of urinary calculi | CPT/HCPCS: 99212 ==

== ENCOUNTER 2023-10-10 10:07 | Outpatient (AMB) | payer MEDICARE, SELFPAY ==
[2023-10-10 10:12] VITALS: BP 94/70; BMI 28.9
--- NOTE | 2023-10-10 10:12 | A.OFFVIS_ITS ---
Intake Vital Signs 10/10/23 10:12 Height 5 ft 9 in Weight 195 lb 12.328 oz BMI 28.9 BP 94/70 Blood Pressure Location Lt brachial Position Sitting Intake Visit Reasons: 3 mth s/p holter Intake Note: 3 month follow up Interpersonal Communications Professor Required: No Accompanied by: Self / Same As Patient Allergies procaine [From Novocain] Allergy (Mild, Verified 10/10/23 10:15) RASH FRESH FRUIT Allergy (Severe, Uncoded 10/10/23 10:15) ANAPHYLAXIS Medication List - Last Reconciled 10/10/23 by Juan Antonio Edwards MD apixaban (Eliquis) 5 mg PO BID 90 days betamethasone dipropionate 0.05% 1 appl topical DAILY PRN metoprolol tartrate 25 mg PO BID 90 days multivitamin 1 tab PO DAILY HPI HPI Comments History of Present Illness Details Carrington returns for follow-up. Recently seen in consultation regarding palpitations. Then underwent monitoring that showed atrial fibrillation/flutter with rapid rates. He was started on beta-blockers. He states he still gets some palpitations. Not as much as before but reduced. No other cardiac complaints. He also underwent coronary CTA that shows no significant findings. [facility]PLACED BY [facility] Medical History History of non-ST elevation myocardial infarction (NSTEMI) Urgency of micturition History of renal calculi Elevated PSA Post-operative nausea and vomiting Surgical History History of right inguinal hernia repair S/P right inguinal hernia repair (07/21/21) History of tonsillectomy History of prostate surgery Hx of colonoscopy Hx of lithotripsy Family History Mother No problems noted. Father No problems noted. Housing: House Alcohol intake: current Alcohol intake frequency: holidays/special occasions only Patient Tobacco Use Status: Never used Tobacco e-Cigarette/Vaping Use: Never Used Second Hand Smoke Exposure: No service: No Current occupational status: retired Cognitive needs: No Hearing needs: No Vision needs: No Review of Systems Const Denies weakness ENT Denies dizziness Card Denies chest pain, Denies chest pain with activity, Denies syncope, Denies rapid heart rate, Denies pedal edema, Denies edema, Denies leg edema, Denies lightheadedness, Denies palpitations, Denies dyspnea, Denies dyspnea on exertion and Denies orthopnea Resp Denies cough, Denies dyspnea and Denies dyspnea on exertion GI Denies hematochezia and Denies change in stool character Musc Denies abnormal gait, Denies muscle cramps, Denies muscle weakness, Denies numbness, Denies radiating pain into limb and Denies tingling Neuro Denies abnormal gait, Denies dizziness, Denies syncope, Denies numbness, Denies tingling and Denies weakness Endo Denies palpitations Physical Exam Vital Signs: Last Vital Signs BP 94/70 10/10/23 10:12 BMI result Body Mass Index 28.9 Const General: comfortable and no acute distress Orientation/consciousness: patient oriented x3 HEENT Other: Unremarkable Head: Yes normal to inspection Neck Neck: Yes normal visual inspection Chest Chest palpation & inspection: normal inspection of the chest Resp Auscultation: clear to auscultation bilaterally Cardio Palpation: normal PMI Heart sounds: S1 normal heart sound present, S2 normal heart sound present, no gallops, no murmurs and no rubs GI Palpation (GI): Soft to palpation Back/Spine/Pelvis Other: unremarkable Skin General skin exam: no rashes or lesions noted Neuro General: patient oriented x3 Extrem General: Yes normal to inspection Psych Mental Status: mental status grossly normal Assessment & Plan Assessment & Plan (1) Paroxysmal atrial fibrillation: Code(s): I48.0 - Paroxysmal atrial fibrillation (2) Encounter for monitoring anti-arrhythmic therapy: Code(s): Z51.81 - Encounter for therapeutic drug level monitoring; Z79.899 - Other supervisor intermediates (current) drug therapy Plan Cardiac studies reviewed. Echocardiogram with LVEF of 55-60%. Moderately dilated left atrium. Otherwise unremarkable. Holter shows underlying sinus rhythm. Atrial fibrillation with rapid rate episodes are noted with a burden of about 2.4%. Longest episode about 3 hours and 30 minutes. Coronary CTA reported normal. As the blood pressure is on the lower side, we can go up on the beta-blockers anymore. We will add flecainide 50 mg b.i.d.. Patient to come in about a week or so for a follow-up EKG. He will also call as as to how he feels. If he still gets palpitations, we can go up on the dose to 100 mg b.i.d.. We also briefly discussed about ablation. If he fails flecainide, then we can refer to EP for ablation. Otherwise, continue anticoagulation. Precautions discussed. Will plan another Holter in about 3-4 months with appointment after that. Orders: Orders ECG 7 day holter monitor 3 Months I48.0 - Paroxysmal atrial fibrillation Medications: New flecainide 50 mg PO Q12H 180 tabs 3RF 90 days Coding Level of Care Code Est Pt Level 4 (06263) Diagnoses Paroxysmal atrial fibrillation I48.0 Encounter for monitoring anti-arrhythmic therapy Z51.81; Z79.899
== END 2023-10-10 10:39 | disposition home or self-care (01) ==
PROVIDERS: PCP Internal Medicine; Visit Provider Internal Medicine
DX: I48.0 Paroxysmal atrial fibrillation (principal); Z51.81 Encounter for therapeutic drug level monitoring; Z79.899 Other long term (current) drug therapy
CPT/HCPCS: 99214

== ENCOUNTER → 2023-10-10 10:07 | Outpatient (BNVA) | payer MEDICARE, SELFPAY | PROVIDERS: PCP Internal Medicine; Visit Provider Internal Medicine | DX: I48.0 Paroxysmal atrial fibrillation (principal); Z51.81 Encounter for therapeutic drug level monitoring; Z79.899 Other long term (current) drug therapy | CPT/HCPCS: 99212 ==

== ENCOUNTER 2023-10-19 09:49 | Outpatient (AMB) | payer MEDICARE, SELFPAY ==
--- NOTE | 2023-10-19 10:05 | AM.OFFVISNUR ---
Intake Intake Visit Reasons: ekg on flecainide Allergies procaine [From Novocain] Allergy (Mild, Verified 10/19/23 10:05) RASH FRESH FRUIT Allergy (Severe, Uncoded 10/19/23 10:05) ANAPHYLAXIS Nursing Note EKG patient on Flecainide 50 MG BID. Patient report feeling okay no complaints. Dr. Edwards review EKG no changes for now. Office Procedures EKG [id number], Complete Coding CPT Codes EKG - CPT: 58193-[id number], Complete ([id number])
== END 2023-10-19 10:04 | disposition home or self-care (01) ==
PROVIDERS: PCP Internal Medicine; Visit Provider Internal Medicine
DX: R00.1 Bradycardia, unspecified (principal); R94.31 Abnormal electrocardiogram [ECG] [EKG]
CPT/HCPCS: 93010

== ENCOUNTER → 2023-10-19 09:49 | Outpatient (BNVA) | payer MEDICARE, SELFPAY | PROVIDERS: PCP Internal Medicine; Visit Provider Internal Medicine | DX: R00.1 Bradycardia, unspecified (principal); R94.31 Abnormal electrocardiogram [ECG] [EKG]; Z79.899 Other long term (current) drug therapy | CPT/HCPCS: 93005 ==

== ENCOUNTER 2023-11-24 10:43 | Outpatient (AMB) | payer MEDICARE, SELFPAY ==
--- NOTE | 2023-11-24 10:54 | A.OFFVIS_ITS ---
Intake Intake Visit Reasons: cysto Intake Note: Patient is Present for Cystoscopy Urology Med: None Antibiotic Allergy: None Blood Thinner: Eliquis URO- G Disposable Cystoscope lot: [id number] exp:03/26/2025 Allergies procaine [From Novocain] Allergy (Mild, Verified 10/19/23 10:05) RASH FRESH FRUIT Allergy (Severe, Uncoded 10/19/23 10:05) ANAPHYLAXIS HPI HPI Comments History of Present Illness Details Carrington is a pleasant male. He is a patient of Dr. Chambers. he is seen for the following urologic condition - elevated PSA - lower urinary tract symptoms - nephrolithiasis Mild prostatic regrowth Recently placed on Eliquis for AFib Had complications with original prostate procedure in 2012 At this point will hold off any form of intervention. March trial dutasteride. Lower urinary tract symptoms Laser prostatectomy 04/2013 - postprocedure bleeding and stayed in hospital for 5 days Has had good stability with effective urination Minimal nocturia Elevated PSA - Biopsy 01/31 Negative MRI - 06/03 - 150 g prostate, PI-RADS 3 inter mediate suspicion 1 area otherwise no prominent changes Large prostate 125 mg PSA 2020 nicko from 8-12.5 - 06/03 12.9, 09/03 12, 10/05 11 Prostate biopsy - performed 01/31 12.52 Negative Tried finasteride - January 2021 but did not tolerate Understands there is a risk of delay in diagnosis Nephrolithiasis Stable ultrasound with renal cyst PFSH Medical History History of non-ST elevation myocardial infarction (NSTEMI) Urgency of micturition History of renal calculi Elevated PSA Post-operative nausea and vomiting Surgical History History of right inguinal hernia repair S/P right inguinal hernia repair (07/21/21) History of tonsillectomy History of prostate surgery Hx of colonoscopy Hx of lithotripsy Family History Mother No problems noted. Father No problems noted. Social History Housing: House Alcohol intake: current Alcohol intake frequency: holidays/special occasions only Comment: medicated, see MAR Patient Tobacco Use Status: Never used Tobacco e-Cigarette/Vaping Use: Never Used Second Hand Smoke Exposure: No service: No Current occupational status: retired Cognitive needs: No Hearing needs: No Vision needs: No Review of Systems Const Denies chills and Denies fever(s) Card Reports no additional complaints and Denies syncope Resp Denies cough GI Denies abdominal pain and Denies heartburn Reports as per HPI and Denies change in libido Neuro Denies syncope Psych Denies change in libido Endo Denies change in libido Physical Exam Const General: cooperative, healthy appearing, comfortable and no acute distress Orientation/consciousness: patient oriented x3 HEENT Face and sinus: Yes normal facial exam Mouth: moist mucous membranes Neck Neck: Yes normal visual inspection, Yes full ROM and Yes trachea midline Chest Chest palpation & inspection: normal inspection of the chest Resp Effort & Inspection: normal respiratory effort, able to speak in complete sentences and no respiratory distress GI Inspection: Yes normal to inspection Back/Spine/Pelvis Cervical Spine: normal cervical lordosis Thoracic/Lumbar Spine: thoracic and lumbar spine normal to inspection Skin General skin exam: no rashes or lesions noted Neuro General: patient oriented x3, gait normal, tone normal and moves all extremities Extrem General: Yes normal to inspection and Yes capillary refill normal Office Procedures Cystoscopy Consent Discussed risk and benefit or proposed procedure with the patient. Information consent for procedure given to the patient. Discussed technical aspects, risks, benefits and alternatives in full. Addressed all of the patient's questions and concerns regarding the procedure. The patient demonstrated knowledge and understanding. They wish to proceed with this procedure. Preparation The patient was prepped in the usual manner. A document controller was present and in the room. Genitalia was prepped with betadine solution in a sterile manner. Lidocaine Jelly 2% was placed into the urethra and 16Fr flexible Olympus cystoscope was inserted into the meatus after adequate lubrication. Procedure Meatus circumcised Urethra anterior and posterior urethra normal Prostatic Urethra bilobar hypertrophy with long prostatic urethra and evidence of prior TURP Bladder examination with retroflexion of cystoscope Bladder Orifices normal shape and position Bladder Capacity medium Trabeculations - Cellule Formation - Diverticulum Formation - Mucosal Erythema - Bladder Tumor - [id number] DISPOSABLE SCOPE URO-G FLEXIBLE SCOPE Procedure code (CPT) selection complete Office Meds lidocaine HCl 2 % mucosal jelly in applicator Performing Provider: Kelton Griffith MD Performing Location: [facility] Administered by: Mallika Kasper RN on 11/24/23 11:28 Dose Route Admin Location Dispensed Lot Number Expiration Date [employer] 10 mL intra-urethral 10 mL nitrofurantoin monohydrate/macrocrystals 100 mg capsule Performing Provider: Kelton Griffith MD Performing Location: [facility] Administered by: Mallika Kasper RN on 11/24/23 11:28 Dose Route Admin Location Dispensed Lot Number Expiration Date [employer] 100 mg PO 1 cap naproxen 500 mg tablet Performing Provider: Kelton Griffith MD Performing Location: [facility] Administered by: Mallika Kasper RN on 11/24/23 11:28 Dose Route Admin Location Dispensed Lot Number Expiration Date [employer] 500 mg PO 1 tab Assessment & Plan Assessment & Plan (1) BPH w urinary obs/LUTS: Code(s): N40.1 - Benign prostatic hyperplasia with lower urinary tract symptoms; N13.8 - Other obstructive and reflux uropathy Plan Six-month follow-up Orders: Orders AMB Cystoscopy 11/24/23 N40.1 - Benign prostatic hyperplasia with lower urinary tract symptoms, N13.8 - Other obstructive and reflux uropathy AMB Urinalysis Automated 11/24/23 Z13.9 - Encounter for screening, unspecified, N40.1 - Benign prostatic hyperplasia with lower urinary tract symptoms, N13.8 - Other obstructive and reflux uropathy PSA,Total (Free>4and<10) 6 Months R97.20 - Elevated prostate specific antigen [PSA] Patient Instructions: Imaging studies, laboratory and physical exam results were discussed and reviewed in detail. No major barriers to patient understanding were identified. An opportunity to ask questions regarding the treatment plan was provided. All questions were answered. The patient expressed understanding and agreement with the above treatment plan. The patient is aware they should contact our office by phone for worsening of their current condition or the appearance of new urologic symptoms. Compliance is encouraged with any medications and followup testing that is ordered. It is a privilege to participate in the urologic care of your patient. If you have any questions or concerns regarding treatment for the above conditions, or other urologic issues, please do not hesitate to contact me. The office telephone contact is [phone]. This note is constructed using voice recognition software. While every effort has been made to ensure accuracy master sonar technician errors may have been included. Yours sincerely, Dr Kelton Griffith MD, [facility] - Urology Providers of Expert, Compassionate Care for the Genitourinary System Coding Level of Care Code Est Pt Level 4 (04644) Diagnoses BPH w urinary obs/LUTS N40.1; N13.8 CPT Codes Cystoscopy - CPT: 16324-[id number] ([id number])
== END 2023-11-24 11:47 | disposition home or self-care (01) ==
PROVIDERS: PCP Internal Medicine; Visit Provider Urology
DX: N40.1 Benign prostatic hyperplasia with lower urinary tract symptoms (principal); N13.8 Other obstructive and reflux uropathy
CPT/HCPCS: 52000; 99213

== ENCOUNTER → 2023-11-24 10:43 | Outpatient (BNVA) | payer MEDICARE, SELFPAY | PROVIDERS: PCP Internal Medicine; Visit Provider Urology | DX: N40.1 Benign prostatic hyperplasia with lower urinary tract symptoms (principal); N13.8 Other obstructive and reflux uropathy; N28.1 Cyst of kidney, acquired | CPT/HCPCS: 52000; 99212 ==

== ENCOUNTER 2024-01-16 14:17 | Outpatient (AMB) | payer MEDICARE, SELFPAY ==
--- NOTE | 2024-01-16 14:20 | MHC.OFFVIS ---
Intake Vital Signs 01/16/24 14:23 Height 5 ft 9 in Weight 198 lb 10.184 oz BMI 29.3 BP 120/86 Blood Pressure Location Lt brachial Position Sitting Pulse 64 Intake Visit Reasons: 3 mth f/up new meds w/ ekg Intake Note: 3 month follow up Foreign Food Cook Specialty Required: No Accompanied by: Self / Same As Patient Allergies procaine [From Novocain] Allergy (Mild, Verified 01/16/24 14:24) RASH FRESH FRUIT Allergy (Severe, Uncoded 01/16/24 14:24) ANAPHYLAXIS Medication List - Last Reconciled 01/16/24 by Juan Antonio Edwards MD apixaban (Eliquis) 5 mg PO BID 90 days betamethasone dipropionate 0.05% 1 appl topical DAILY PRN flecainide 50 mg PO Q12H 90 days metoprolol tartrate 25 mg PO BID 90 days multivitamin 1 tab PO DAILY HPI HPI Comments History of Present Illness Details Carrington returns for follow-up. To recall, he was seen in consultation regarding palpitations. Then underwent monitoring that showed atrial fibrillation/flutter with rapid rates. Start beta-blockers and he was still having palpitations and hence started flecainide. After that, he states he is mostly okay. Palpitations are quite rare and last only for a few seconds at a time according to him. He also underwent coronary CTA but shows no significant CAD. [facility] Medical History History of non-ST elevation myocardial infarction (NSTEMI) Urgency of micturition History of renal calculi Elevated PSA Post-operative nausea and vomiting Surgical History History of right inguinal hernia repair S/P right inguinal hernia repair (07/21/21) History of tonsillectomy History of prostate surgery Hx of colonoscopy Hx of lithotripsy Family History Mother No problems noted. Father No problems noted. Social History Housing: House Alcohol intake: current Alcohol intake frequency: holidays/special occasions only Comment: medicated, see MAR Patient Tobacco Use Status: Never used Tobacco e-Cigarette/Vaping Use: Never Used Second Hand Smoke Exposure: No service: No Current occupational status: retired Cognitive needs: No Hearing needs: No Vision needs: No Review of Systems Const All systems reviewed & are unremarkable except as noted in HPI and below Reports as per HPI and Reports no additional complaints Eyes Reports as per HPI and Denies no additional complaints ENT Denies no additional complaints and Reports as per HPI Card Reports as per HPI, Reports no additional complaints, Denies acrocyanosis, Denies chest pain, Denies leg edema, Denies lightheadedness, Denies palpitations and Denies dyspnea Resp Reports as per HPI, Denies no additional complaints and Denies dyspnea GI Reports as per HPI and Denies no additional complaints Reports no additional complaints and Reports as per HPI Musc Reports no additional complaints and Reports as per HPI Skin/Breast Reports system reviewed and no additional complaints, except as documented Neuro Reports no additional complaints and Reports as per HPI Psych Reports no additional complaints and Reports as per HPI Endo Reports no additional complaints, Reports as per HPI and Denies palpitations Adrien/Lymph Reports no additional complaints and Reports as per HPI Aller/Immun Reports no additional complaints and Reports as per HPI Physical Exam Vital Signs: Last Vital Signs Pulse 64 01/16/24 14:23 BP 120/86 01/16/24 14:23 BMI result Body Mass Index 29.3 Const General: comfortable and no acute distress Orientation/consciousness: patient oriented x3 HEENT Other: Unremarkable Head: Yes normal to inspection Neck Neck: Yes normal visual inspection Chest Chest palpation & inspection: normal inspection of the chest Resp Auscultation: clear to auscultation bilaterally Cardio Palpation: normal PMI Heart sounds: S1 normal heart sound present, S2 normal heart sound present, no gallops, no murmurs and no rubs GI Palpation (GI): Soft to palpation Back/Spine/Pelvis Other: unremarkable Skin General skin exam: no rashes or lesions noted Neuro General: patient oriented x3 Extrem General: Yes normal to inspection Psych Mental Status: mental status grossly normal Office Procedures EKG Details: EKG with sinus rhythm at 64/Min; no significant ST-T changes; [place]. [id number], Complete Assessment & Plan Assessment & Plan (1) Paroxysmal atrial fibrillation: Code(s): I48.0 - Paroxysmal atrial fibrillation (2) Encounter for monitoring anti-arrhythmic therapy: Code(s): Z51.81 - Encounter for therapeutic drug level monitoring; Z79.899 - Other senior living (current) drug therapy (3) Hematuria: Code(s): R31.9 - Hematuria, unspecified Plan Cardiac studies reviewed. Echocardiogram with LVEF of 55-60%. Moderately dilated left atrium. Otherwise unremarkable. Holter shows underlying sinus rhythm. Atrial fibrillation with rapid rate episodes are noted with a burden of about 2.4%. Longest episode about 3 hours and 30 minutes. (before Flecainide). Coronary CTA reported normal. With regard to medications, he is much better on metoprolol/flecainide. May continue that for now. With regard to Eliquis, he has not taken that in a couple of weeks due to urinary bleeding. He states urology could not find a reason why. He does have a history of kidney stones and hence possibly some inflammation along the urinary tract. Advised him to re-attempt taking the Eliquis. If he still bleeds, then we need to figure out what to do. His overall CHADS2 VASc score is quite low at probably 1. There is a history of NSTEMI from 2013 which might put him at score of 2 but the coronary CTA from last year did not show any significant CAD, and hence his score can be considered to be between 1 and 2. We discussed other possibilities including electrophysiology consultation, possibly atrial fibrillation ablation which if successful may help us stop the anticoagulation completely. Other possibility is also Watchman device. Gave him brochure to review. He will start the Eliquis tonight and then see how it goes. He will contact us if he bleeds again. In that case, we will ask for EP consult, Dr. Miranda. Coding Level of Care Code Est Pt Level 4 (29137) Diagnoses Paroxysmal atrial fibrillation I48.0 Encounter for monitoring anti-arrhythmic therapy Z51.81; Z79.899 Hematuria R31.9 CPT Codes EKG - CPT: 03205-[id number], Complete ([id number])
[2024-01-16 14:23] VITALS: BP 120/86; PULSE 64; BMI 29.3
== END 2024-01-16 14:52 | disposition home or self-care (01) ==
PROVIDERS: PCP Internal Medicine; Visit Provider Internal Medicine
DX: I48.0 Paroxysmal atrial fibrillation (principal); Z51.81 Encounter for therapeutic drug level monitoring; Z79.899 Other long term (current) drug therapy; R31.9 Hematuria, unspecified
CPT/HCPCS: 93010; 99214

== ENCOUNTER → 2024-01-16 14:17 | Outpatient (BNVA) | payer MEDICARE, SELFPAY | PROVIDERS: PCP Internal Medicine; Visit Provider Internal Medicine | DX: I48.0 Paroxysmal atrial fibrillation (principal); R31.9 Hematuria, unspecified; Z51.81 Encounter for therapeutic drug level monitoring; Z79.899 Other long term (current) drug therapy | CPT/HCPCS: 93005; 99212 ==

== ENCOUNTER 2024-05-07 12:49 | Outpatient (AMB) | payer MEDICARE, SELFPAY ==
[2024-05-07 12:50] VITALS: BP 100/60; PULSE 60; O2SAT 94; BMI 28.9
--- NOTE | 2024-05-07 12:50 | A.OFFPC_ITS ---
Vital Signs 05/07/24 12:50 Height 5 ft 9 in Weight 196 lb BMI 28.9 BP 100/60 Blood Pressure Location Lt brachial Position Sitting Pulse 60 Pulse Source Pulse Oximeter Pulse Oximetry (%) 94 Oxygen Delivery Method Room Air Intake Visit Reasons: annual exam Rental Sales Agent Required: No Machine Maintenance Supervisor: Not Required per policy Accompanied by: Self / Same As Patient Allergies procaine [From Novocain] Allergy (Mild, Verified 05/07/24 12:51) RASH FRESH FRUIT Allergy (Severe, Uncoded 05/07/24 12:51) ANAPHYLAXIS Tobacco use date assessed: 05/07/24 Fall risk assessment: No Falls in past year Last assessed Fall Risk: 05/07/24 Dental Screening Dental Screen Date: 05/07/24 Did you have a dental visit in the last 12 months?: Yes Did you have a dental problem in the last 6 months where you did not have access to dental care?: No Was dental information given to patient?: Patient has dentist HPI annual exam HPI Details healthy PENDING SALE TO [facility] Medical History History of non-ST elevation myocardial infarction (NSTEMI) Urgency of micturition History of renal calculi Elevated PSA Post-operative nausea and vomiting Surgical History History of right inguinal hernia repair S/P right inguinal hernia repair (07/21/21) History of tonsillectomy History of prostate surgery Hx of colonoscopy Hx of lithotripsy Family History Mother No problems noted. Father No problems noted. Social History Housing: House Alcohol intake: current Alcohol intake frequency: holidays/special occasions only Comment: medicated, see MAR Patient Tobacco Use Status: Never used Tobacco e-Cigarette/Vaping Use: Never Used Second Hand Smoke Exposure: No service: No Current occupational status: retired Cognitive needs: No Hearing needs: No Vision needs: No Questionnaire PHQ-9 Over the last 2 weeks, how often have you been bothered by any of the following problems? 1. Little interest or pleasure in doing things: not at all 2. Feeling down, depressed, or hopeless: not at all 3. Trouble falling or staying asleep, or sleeping too much: not at all 4. Feeling tired or having little energy: not at all 5. Poor appetite or overeating: not at all 6. Feeling bad about yourself - or that you are a failure or have let yourself or your family down: not at all 7. Trouble concentrating on things, such as reading the newspaper or watching television: not at all 8. Moving or speaking so slowly that other people could have noticed. Or the opposite - being so fidgety or restless that you have been moving around a lot more than usual: not at all 9. Thoughts that you would be better off or of hurting yourself in some way: not at all Total score: 0 Depression Screening Interpretation: Negative Depression Screening Done: Yes [id number] - PHQ-9 Billing: Yes Source: Developed by Drs. Aiden Lyn, Zenaida Ness, Gray Reich and colleagues, with an educational arti from [employer]. Thrive Questionnaire Date Thrive assessed: 05/07/24 I am a: Patient What is your living situation today?: I have a steady place to live Within the past 12 months, did the food you bought not last and you didn't have the money to get more?: Never true Within the past 12 months, did you worry whether your food would run out before you got money to buy more?: Never true Do you have trouble paying for medicines?: No Do you have trouble getting transportation to medical appointments?: No Do you have trouble paying your heating and electricity bill?: No Do you have trouble taking care of your child, family member or friend?: No Do you have trouble with day-to-day activities such as bathing, preparing meals, shopping, managing finances, etc.?: No Are you currently unemployed and looking for a job?: No Are you interested in more education?: No Please select the resources that you would like help with: None THRIVE Score: 0 AUDIT C Alcohol Use Questionnaire (AUDIT-C) 1. How often do you have a drink containing alcohol?: Monthly or less 2. How many drinks containing alcohol do you have on a typical day when you are drinking?: 1 or 2 3. How often do you have six or more drinks on one occasion?: Never Total Score: 1 Score Reviewed/Action Taken: Yes DIANE-7 AMB Questionnaire DIANE-7 Date DIANE - 7 assessed: 05/07/24 Feeling nervous, anxious, or on edge: 0 = Not at all Not being able to stop or control worryin = Not at all Worrying too much about different things: 0 = Not at all Trouble relaxin = Not at all Being so restless that it is hard to sit still: 0 = Not at all Becoming easily annoyed or irritable: 0 = Not at all Feeling afraid as if something awful might happen: 0 = Not at all Total DIANE-7 score (0-4 normal; 5-9 mild; 10-14 moderate; 15-21 severe): 0 Source: Developed by Drs. Aiden Lyn, Zenaida Ness, Gray Reich and colleagues, with an educational arti from [employer]. Review of Systems Const Denies chills, Denies fatigue, Denies headache(s) and Denies weight loss Eyes Denies change in vision, Denies diplopia and Denies eye pain ENT Denies vertigo, Denies dizziness, Denies headache(s) and Denies nasal discharge Card Denies chest pain, Denies rapid heart rate and Denies dyspnea on exertion Resp Denies chest congestion, Denies cough, Denies pain with cough and Denies dyspnea on exertion GI Denies abdominal pain, Denies hematochezia and Denies change in bowel habits Musc Denies myalgias, Denies arthralgias and Denies joint swelling Skin/Breast Denies lesions and Denies unusual bruising Neuro Denies vertigo, Denies dizziness, Denies headache(s) and Denies focal weakness Endo Denies fatigue Physical exam (Primary Care) Vital Signs: Last Vital Signs Pulse 60 05/07/24 12:50 BP 100/60 05/07/24 12:50 Pulse Ox 94 05/07/24 12:50 Oxygen Delivery Method Room Air 05/07/24 12:50 BMI result Body Mass Index 28.9 Tobacco/Smoking Status: Tobacco use Status Tobacco use date assessed 05/07/24 05/07/24 12:52 Patient Tobacco Use Status Never used Tobacco 05/07/24 12:52 e-Cigarette/Vaping Use Never Used 05/07/24 12:52 PHQ-9: PHQ-9 Score PHQ-9: Total score 0 05/07/24 12:52 Depression Screening Interpretation: Negative Thrive Assessment: Date of Thrive Assessment Date Thrive assessed 05/07/24 05/07/24 12:52 Const General: cooperative, healthy appearing and no acute distress Orientation/consciousness: oriented to person, oriented to place and oriented to time HENMT Head: Yes normal to inspection, Yes normocephalic and Yes atraumatic Mouth: Normal oral and palatal mucosa present and tongue normal Throat: Yes posterior oropharynx normal and Yes uvula midline Eyes General: appearance normal, both eyes and all related structures Neck Neck: Yes normal visual inspection, Yes full ROM and Yes no lymphadenopathy Thyroid: Thyroid normal Carotids: normal carotid upstroke Chest Chest palpation & inspection: normal inspection of the chest Resp Effort & Inspection: normal respiratory effort and able to speak in complete sentences Auscultation: clear to auscultation bilaterally Cardio Jugular venous distension: no JVD Palpation: normal PMI Rate: regular rate Rhythm: regular rhythm Heart sounds: S1 normal heart sound present and S2 normal heart sound present GI Inspection: Yes normal to inspection Palpation (GI): Soft to palpation and No hepatosplenomegaly present Auscultation: normal bowel sounds General: Yes no CVA tenderness Back/Spine/Pelvis Back: no CVA tenderness Skin General skin exam: no rashes or lesions noted Neuro General: oriented to person, oriented to place and oriented to time Extrem General: Yes normal to inspection and Yes full ROM Assessment and Plan Assessment & Plan (1) Physical exam: Code(s): Z00.00 - Encounter for general adult medical examination without abnormal findings Plan: stable; do labs (2) Cardiac arrhythmia: Code(s): I49.9 - Cardiac arrhythmia, unspecified Plan: as per cardiology (3) BPH (benign prostatic hyperplasia): Code(s): N40.0 - Benign prostatic hyperplasia without lower urinary tract symptoms Plan: per urology Orders: Orders Lipid Panel Today Z13.220 - Encounter for screening for lipoid disorders Complete Blood Count Auto Diff Today Z13.0 - Encounter for screening for diseases of the blood and blood-forming organs and certain disorders involving the immune mechanism Comprehensive [place]. Panel Fast Today Z13.9 - Encounter for screening, unspecified Comprehensive [place]. Panel Fast Today Z13.9 - Encounter for screening, unspecified Thyroid Stimulating Hormone Today Z13.29 - Encounter for screening for other suspected endocrine disorder Thyroid Stimulating Hormone Today Z13.29 - Encounter for screening for other suspected endocrine disorder Lipid Panel Today Z13.220 - Encounter for screening for lipoid disorders Complete Blood Count Auto Diff Today Z13.0 - Encounter for screening for diseases of the blood and blood-forming organs and certain disorders involving the immune mechanism Coding Level of Care Code Est Pt Prev Care >65y(72422) Diagnoses Physical exam Z00.00 Cardiac arrhythmia I49.9 BPH (benign prostatic hyperplasia) N40.0
== END 2024-05-07 13:32 | disposition home or self-care (01) ==
PROVIDERS: PCP Internal Medicine; Visit Provider Internal Medicine
DX: Z00.00 Encounter for general adult medical examination without abnormal findings (principal); I49.9 Cardiac arrhythmia, unspecified; N40.0 Benign prostatic hyperplasia without lower urinary tract symptoms
CPT/HCPCS: 99397

== ENCOUNTER 2024-05-08 06:41 | Outpatient (REF) | payer MEDICARE, SELFPAY ==
[2024-05-08 06:57] LABS: MANUAL DIFF FLAG NO
[2024-05-08 07:19] LABS: Basophils Percent Auto 0.6 % (0-2); Eosinophils Absolute Auto 0.2 X10*3/uL (0.0-0.4); Eosinophils Percent Auto 6.1 % (0-4); Hematocrit 43.6 % (42.0-52.0); Hemoglobin 15.5 g/dl (14.0-18.0); Imm Gran Abs Auto 0.01 X10*3/uL (0.00-0.03); Imm Gran Pct Auto 0.3 % (0.0-0.4); Lymphocytes Absolute Auto 1.2 X10*3/uL (1.2-4.9); Lymphocytes Percent Auto 35.4 % (20-40); Mean Corpuscular HGB Conc 35.6 g/dl (31.0-36.0); Mean Corpuscular Hemoglobin 32.5 pg (27.0-33.0); Mean Corpuscular Volume 91.4 fL (80.0-98.0); Mean Platelet Volume 10.4 fL (9.4-12.4); Monocytes Absolute Auto 0.3 X10*3/uL (0.1-1.2); Monocytes Percent Auto 7.5 % (2-11); Neutrophils Absolute Auto 1.7 x10*3/uL (2.0-8.3); Neutrophils Percent Auto 50.1 % (45-73); Platelet Count 189 X10*3/uL (160-400); Red Blood Count 4.77 X10*6/uL (4.60-5.80); Red Cell Distribution Width 13.3 % (11.0-16.0); White Blood Count 3.5 X10*3/uL (4.8-10.8)
[2024-05-08 07:50] LABS: Alanine Aminotransferase 28 U/L (0-40); Albumin Level 4.4 g/dL (3.5-5.0); Alkaline Phosphatase 56 U/L (39-117); Anion Gap 12 (12-20); Aspartate Amino Transferase 28 U/L (5-37); Blood Urea Nitrogen 20 mg/dL (9-16); Calcium 9.4 mg/dL (8.4-10.2); Carbon Dioxide 25 mmol/L (22-29); Chloride 107 mmol/L (96-108); Cholesterol 177 mg/dL (<200); Estimated Glomerular Filt Rate > 60; Glucose Fasting 91 mg/dL (60-99); HDL Cholesterol 45 mg/dL (>40); LDL Cholesterol Calculated 104 mg/dL (<100); Potassium 4.4 mmol/L (3.3-5.1); Sodium 140 mmol/L (135-145); Total Protein 6.9 g/dL (6.5-8.0); Triglycerides 140 mg/dL (<150)
[2024-05-08 08:02] LABS: PSA,Total (Free>4and<10) 13.85 ng/mL (0.00-4.00)
[2024-05-08 08:08] LABS: Thyroid Stimulating Hormone 1.85 uIU/mL (0.32-4.0)
== END 2024-05-08 06:42 | disposition home or self-care (01) ==
LOC: HO.LAB 06:41
PROVIDERS: Absent Provider Urology; PCP Internal Medicine; Visit Provider Internal Medicine
DX: Z13.9 Encounter for screening, unspecified (principal); Z13.220 Encounter for screening for lipoid disorders; Z13.0 Encounter for screening for diseases of the blood and blood-forming organs and certain disorders involving the immune mechanism; Z13.29 Encounter for screening for other suspected endocrine disorder; R97.20 Elevated prostate specific antigen [PSA]; Z12.5 Encounter for screening for malignant neoplasm of prostate
CPT/HCPCS: 36415; 80053; 80061; 84153; 84443; 85025

== ENCOUNTER 2024-07-02 08:44 | Outpatient (AMB) | payer MEDICARE, SELFPAY ==
--- NOTE | 2024-07-02 08:41 | MHC.OFFVIS ---
Intake Visit Reasons: 6M Follow Up-PSA(set)Elevated Intake Note: Patient is Present for Cystoscopy Urology Med: None Antibiotic Allergy: None Blood Thinner: Eliquis Informatics Nurse Required: No Allergies procaine [From Novocain] Allergy (Mild, Verified 07/02/24 08:43) RASH FRESH FRUIT Allergy (Severe, Uncoded 07/02/24 08:43) ANAPHYLAXIS Medication List - Last Reconciled 07/02/24 by Kelton Griffith MD apixaban (Eliquis) 5 mg PO BID 90 days betamethasone dipropionate 0.05% 1 appl topical DAILY PRN brimonidine 0.2% drps ophthalmic (eye) flecainide 50 mg PO Q12H 90 days metoprolol tartrate 25 mg PO BID 90 days multivitamin 1 tab PO DAILY HPI Comments Details: Carrington is a pleasant male. He is a patient of Dr. Chambers. he is seen for the following urologic condition - elevated PSA - lower urinary tract symptoms - nephrolithiasis Telemedicine Evaluation 15 min Consultation DoxNanosys Otilia Video attempted Remains high Mild prostatic regrowth On Eliquis for AFib Had complications with original prostate procedure in 2012 Lower urinary tract symptoms Laser prostatectomy 04/2013 - postprocedure bleeding and stayed in hospital for 5 days Has had good stability with effective urination Minimal nocturia Elevated PSA - Biopsy 01/31 Negative MRI - 06/03 - 150 g prostate, PI-RADS 3 intermediate suspicion 1 area otherwise no prominent changes PSA 2020 nicko from 8-12.5 - 2020 F 22%, 06/03 12.9, 09/03 12, 10/05 11, 05/06 13.8 Prostate biopsy - performed 01/31 12.52 Negative Tried finasteride - January 2021 but did not tolerate Understands there is a risk of delay in diagnosis Nephrolithiasis Stable ultrasound with renal cyst PFSH Medical History History of non-ST elevation myocardial infarction (NSTEMI) Urgency of micturition History of renal calculi Elevated PSA Post-operative nausea and vomiting Surgical History History of right inguinal hernia repair S/P right inguinal hernia repair (07/21/21) History of tonsillectomy History of prostate surgery Hx of colonoscopy Hx of lithotripsy Family History Mother No problems noted. Father No problems noted. Social History Housing: House Alcohol intake: current Alcohol intake frequency: holidays/special occasions only Comment: medicated, see MAR Patient Tobacco Use Status: Never used Tobacco e-Cigarette/Vaping Use: Never Used Second Hand Smoke Exposure: No service: No Current occupational status: retired Cognitive needs: No Hearing needs: No Vision needs: No Review of Systems Const All systems reviewed & are unremarkable except as noted in HPI and below Reports no additional complaints Resp Reports no additional complaints GI Reports no additional complaints Reports as per HPI Musc Reports no additional complaints Physical Exam Telemedicine evaluation Appropriate responses Regular breathing rate and rhythm HEENT Head: Yes normal to inspection Ears: hearing grossly normal bilaterally Eyes General: appearance normal, both eyes and all related structures Neck Neck: Yes normal visual inspection Chest Chest palpation & inspection: normal inspection of the chest Resp Effort & Inspection: normal respiratory effort and able to speak in complete sentences Telehealth Telehealth Telehealth Platform: [employer] Location of provider rendering services: practice address Location of patient: address on file Patient Identification confirmed using: Name, : Yes Telehealth method: video Patient verbally consented to treatment: Yes Patient verbally consented to billing insurance company: Yes Patient informed of any privacy concerns related to visit: Yes Minutes spent on Phone/Video with Pt.: 15 Assessment & Plan Assessment & Plan (1) BPH (benign prostatic hyperplasia): Code(s): N40.0 - Benign prostatic hyperplasia without lower urinary tract symptoms Category: Medical (2) Elevated PSA: Code(s): R97.20 - Elevated prostate specific antigen [PSA] Category: Medical Plan 6m f/u PSA Orders: Orders PSA,Total (Free>4and<10) 6 Months R97.20 - Elevated prostate specific antigen [PSA] Patient Instructions: Imaging studies, laboratory and physical exam results were discussed and reviewed in detail. No major barriers to patient understanding were identified. An opportunity to ask questions regarding the treatment plan was provided. All questions were answered. The patient expressed understanding and agreement with the above treatment plan. The patient is aware they should contact our office by phone for worsening of their current condition or the appearance of new urologic symptoms. Compliance is encouraged with any medications and followup testing that is ordered. It is a privilege to participate in the urologic care of your patient. If you have any questions or concerns regarding treatment for the above conditions, or other urologic issues, please do not hesitate to contact me. The office telephone contact is [phone]. This note is constructed using voice recognition software. While every effort has been made to ensure accuracy electronic sensing equipment assembler errors may have been included. Yours sincerely, Dr Kelton Griffith MD, [facility] - Urology Providers of Expert, Compassionate Care for the Genitourinary System Coding Level of Care Code Tele Est Pt Level 3 (73639) Diagnoses BPH (benign prostatic hyperplasia) N40.0 Elevated PSA R97.20
== END 2024-07-02 09:27 | disposition home or self-care (01) ==
LOC: HO.HUSH 08:44
PROVIDERS: PCP Internal Medicine; Visit Provider Urology
DX: N40.0 Benign prostatic hyperplasia without lower urinary tract symptoms (principal); R97.20 Elevated prostate specific antigen [PSA]
CPT/HCPCS: 99213

== ENCOUNTER → 2024-07-02 08:44 | Outpatient (BNVA) | payer MEDICARE, SELFPAY | PROVIDERS: PCP Internal Medicine; Visit Provider Urology ==

== ENCOUNTER 2024-07-23 12:36 | Outpatient (AMB) | payer MEDICARE, SELFPAY ==
[2024-07-23 12:44] VITALS: BP 100/52; PULSE 61; BMI 29.3
--- NOTE | 2024-07-23 12:44 | A.OFFVIS_ITS ---
Vital Signs 07/23/24 12:44 Height 5 ft 9 in Weight 198 lb 6.656 oz BMI 29.3 BP 100/52 L Blood Pressure Location Lt brachial Position Sitting Pulse 61 Intake Visit Reasons: 6 mnth f/up Environmental Health And Safety Leader Required: No Accompanied by: Self / Same As Patient Allergies procaine [From Novocain] Allergy (Mild, Verified 07/02/24 08:43) RASH FRESH FRUIT Allergy (Severe, Uncoded 07/02/24 08:43) ANAPHYLAXIS Medication List - Last Reconciled 07/23/24 by Juan Antonio Edwards MD apixaban (Eliquis) 5 mg PO BID 90 days betamethasone dipropionate 0.05% 1 appl topical DAILY PRN brimonidine 0.2% drps ophthalmic (eye) flecainide 50 mg PO Q12H 90 days metoprolol tartrate 25 mg PO BID 90 days multivitamin 1 tab PO DAILY HPI Comments Details: Carrington returns for follow-up regarding paroxysmal atrial fibrillation. In the past, he was having palpitations and that led to monitoring revealing atrial fibrillation/flutter with rapid rates. He was initially put on beta-blockers but still had palpitations and hence started on flecainide. After that, for the most part he is doing fine but he still gets some palpitations off and on. He also had some hematuria but it seems resolved now. Otherwise, he underwent coronary CTA which was unremarkable. No new concerns otherwise. [facility] Medical History History of non-ST elevation myocardial infarction (NSTEMI) Urgency of micturition History of renal calculi Elevated PSA Post-operative nausea and vomiting Surgical History History of right inguinal hernia repair S/P right inguinal hernia repair (07/21/21) History of tonsillectomy History of prostate surgery Hx of colonoscopy Hx of lithotripsy Family History Mother No problems noted. Father No problems noted. Social History Housing: House Alcohol intake: current Alcohol intake frequency: holidays/special occasions only Comment: medicated, see MAR Patient Tobacco Use Status: Never used Tobacco e-Cigarette/Vaping Use: Never Used Second Hand Smoke Exposure: No service: No Current occupational status: retired Cognitive needs: No Hearing needs: No Vision needs: No Review of Systems Const Denies chills, Denies fatigue, Denies fever(s), Denies weight gain and Denies weight loss ENT Denies dizziness Card Denies chest pain, Denies leg edema, Denies lightheadedness, Denies palpitations, Denies dyspnea on exertion, Denies orthopnea and Denies other Resp Denies cough and Denies dyspnea on exertion GI Denies hematochezia and Denies change in stool character Musc Denies abnormal gait, Denies muscle weakness, Denies numbness, Denies radiating pain into limb and Denies tingling Neuro Denies abnormal gait, Denies dizziness, Denies numbness and Denies tingling Endo Denies fatigue and Denies palpitations Physical Exam Vital Signs: Last Vital Signs Pulse 61 07/23/24 12:44 BP 100/52 L 07/23/24 12:44 BMI result Body Mass Index 29.3 Const General: comfortable and no acute distress Orientation/consciousness: patient oriented x3 HEENT Other: Unremarkable Head: Yes normal to inspection Neck Neck: Yes normal visual inspection Chest Chest palpation & inspection: normal inspection of the chest Resp Auscultation: clear to auscultation bilaterally Cardio Palpation: normal PMI Heart sounds: S1 normal heart sound present, S2 normal heart sound present, no gallops, no murmurs and no rubs GI Palpation (GI): Soft to palpation Back/Spine/Pelvis Other: unremarkable Skin General skin exam: no rashes or lesions noted Neuro General: patient oriented x3 Extrem General: Yes normal to inspection Psych Mental Status: mental status grossly normal Office Procedures EKG Details: EKG with underlying sinus rhythm at 61/Min; nonspecific T-wave changes in anterior leads; [place] [id number], Complete Assessment & Plan Assessment & Plan (1) Paroxysmal atrial fibrillation: Code(s): I48.0 - Paroxysmal atrial fibrillation Category: Medical (2) Encounter for monitoring anti-arrhythmic therapy: Code(s): Z51.81 - Encounter for therapeutic drug level monitoring; Z79.899 - Other senior living (current) drug therapy Category: Medical Plan Cardiac studies reviewed. Echocardiogram with LVEF of 55-60%. Moderately dilated left atrium. Otherwise unremarkable. Holter shows underlying sinus rhythm. Atrial fibrillation with rapid rate episodes are noted with a burden of about 2.4%. Longest episode about 3 hours and 30 minutes. (before Flecainide). Coronary CTA reported normal. Overall, symptoms reasonably controlled on metoprolol/flecainide but he still gets occasional palpitations. Hence we discussed about EP evaluation and possible ablation. At this time, he states he would rather just hold off and continue medications only. He feels that the palpitations are not too bothersome. If it gets worse, he will contact us. Otherwise, we will repeat another Holter in about 6 months' time and then reassess. There is a history of hematuria but it seems that it is resolved. He is back on Eliquis. Follow-up in 6 months. In the interim, he will call with concerns. Orders: Orders ECG 14 day holter monitor 6 Months I48.0 - Paroxysmal atrial fibrillation Coding Level of Care Code Est Pt Level 4 (36090) Diagnoses Paroxysmal atrial fibrillation I48.0 Encounter for monitoring anti-arrhythmic therapy Z51.81; Z79.899 CPT Codes EKG - CPT: 57772-[id number], Complete ([id number])
== END 2024-07-23 13:42 | disposition home or self-care (01) ==
PROVIDERS: PCP Internal Medicine; Visit Provider Internal Medicine
DX: I48.0 Paroxysmal atrial fibrillation (principal); Z51.81 Encounter for therapeutic drug level monitoring; Z79.899 Other long term (current) drug therapy
CPT/HCPCS: 93010; 99214

== ENCOUNTER → 2024-07-23 12:36 | Outpatient (BNVA) | payer MEDICARE, SELFPAY | PROVIDERS: PCP Internal Medicine; Visit Provider Internal Medicine | DX: I48.0 Paroxysmal atrial fibrillation (principal); Z51.81 Encounter for therapeutic drug level monitoring; Z79.899 Other long term (current) drug therapy | CPT/HCPCS: 93005; 99212 ==

== ENCOUNTER → 2025-01-13 08:20 | Outpatient (REF) | payer MEDICARE, SELFPAY ==
--- OUTSIDE RECORDS SUMMARY | 2025-01-13 08:36 | XMS_ITS | Patient Health Record ---
Author Organization [facility] Address [address] [place] [address] Care Team Providers Care Pumper Gauger Apprentice Name Role Phone Forrest Butterfield MD Primary Care Provider Aiden Watson Unavailable [phone] ALLERGIES Allergen (clinical drug ingredient) Drug/Non Drug Allergy documented on EMR Reaction Allergy Type Onset Date Status Dust Mite Mixed Allergen Ext Unknown Drug Allergy Active Novocain Unknown Drug Allergy Active REASON FOR REFERRAL No Information MEDICATIONS Medication SIG (Take, Route, Frequency, Duration) Notes Start Date End Date Status Multivitamin Active IMMUNIZATIONS Vaccine Route Administration Date Status Comme nts Influenza Unknown 08/04/2020 Refused SOCIAL HISTORY Tobacco Use: Social History Observation Description Date Details (start date - stop date) Never Smoker NA - NA Sex Assigned At : Social History Observation Description Sex Assigned At Unknown Tobacco Use/Smoking Question Answer Notes Patient is a nonsmoker Alcohol Screen Question Answer Notes Did you have a drink contain ing alcohol in the past year? Yes How often did you have a dri nk containing alcohol in the past year? 2 to 4 times a month (2 points) How many drinks did you have on a typical day when you were drinking in the past year? 1 or 2 drinks (0 point) How often did you have 6 or more drinks on one occasion in the past year? Never (0 point) Points 2 Interpretation Negative PROBLEMS Problem Type ICD Code Onset Dates Problem Status W/U Status Risk SNOMED Code Notes Problem Encounter for screening for malignant neoplasm of colon (Z12.11) Active confirmed 484488974 Problem Preprocedural examination (Z01.818) Active confirmed [id number] PLAN OF TREATMENT Future Test Test Name Order Date COLONOSCOPY 08/04/2020 Insurance Providers Payer Name Payer Address Payer Phone Subscriber Number Group Number Insured Name Patient Relationship to Insured Coverage Start Date Coverage End Date [facility] [address] [place] [address] [id number] HARVINDER DOMINGUEZ Self - patient is the insured MEDICAL (GENERAL) HISTORY Medical History History ICD Code Kidney Stones--ESWL Enlarged prostate--seeing ur ologist for possible prosate biopsy later in 2019 Negative screening colonoscopy in 12/[address] Grover Vides [place],DM,CVA,Lung disease,renal dise ase Surgical History Surgery Date(Month/Year) Prostate - laser surgery
== END ==
LOC: HO.CARD 08:20
PROVIDERS: PCP Internal Medicine; Visit Provider Internal Medicine
DX: I48.0 Paroxysmal atrial fibrillation (principal)
CPT/HCPCS: 93246

== ENCOUNTER → 2025-01-13 09:31 | Outpatient (BNV) | payer MEDICARE, SELFPAY | PROVIDERS: PCP Internal Medicine; Visit Provider Internal Medicine Cardiovascular Disease | DX: I49.1 Atrial premature depolarization (principal); I47.19 Other supraventricular tachycardia | CPT/HCPCS: 93248 ==

== ENCOUNTER 2025-02-11 13:41 | Outpatient (AMB) | payer MEDICARE, SELFPAY ==
[2025-02-11 13:47] VITALS: BP 100/68; PULSE 68; BMI 29.1
--- NOTE | 2025-02-11 13:47 | A.OFFVIS_ITS ---
Vital Signs 02/11/25 13:47 Height 5 ft 9 in Weight 197 lb BMI 29.1 BP 100/68 Blood Pressure Location Lt brachial Position Sitting Pulse 68 Pulse Source Pulse Oximeter Intake Visit Reasons: F/U s/p Holter Allergies procaine [From Novocain] Allergy (Mild, Verified 07/02/24 08:43) RASH FRESH FRUIT Allergy (Severe, Uncoded 07/02/24 08:43) ANAPHYLAXIS Medication List - Last Reconciled 02/11/25 by Juan Antonio Edwards MD apixaban (Eliquis) 5 mg PO BID 90 days brimonidine 0.2% drps ophthalmic (eye) flecainide 50 mg PO Q12H 90 days metoprolol tartrate 25 mg PO BID 90 days multivitamin 1 tab PO DAILY HPI Comments Details: Carrington returns for follow-up regarding paroxysmal atrial fibrillation. In the past, he was having palpitations and that led to monitoring revealing atrial fibrillation/flutter with rapid rates. He was initially put on beta-blockers but still had palpitations and hence started on flecainide. He is generally doing well. Rare palpitations and he states that they are not too bothersome. Otherwise, feels fine. [facility] Medical History History of non-ST elevation myocardial infarction (NSTEMI) Urgency of micturition History of renal calculi Elevated PSA Post-operative nausea and vomiting Surgical History History of right inguinal hernia repair S/P right inguinal hernia repair (07/21/21) History of tonsillectomy History of prostate surgery Hx of colonoscopy Hx of lithotripsy Family History Mother No problems noted. Father No problems noted. Social History Housing: House Alcohol intake: current Alcohol intake frequency: holidays/special occasions only Comment: medicated, see MAR Patient Tobacco Use Status: Never used Tobacco e-Cigarette/Vaping Use: Never Used Second Hand Smoke Exposure: No service: No Current occupational status: retired Cognitive needs: No Hearing needs: No Vision needs: No Review of Systems Const Denies weakness ENT Denies dizziness Card Denies chest pain, Denies chest pain with activity, Denies syncope, Denies rapid heart rate, Denies pedal edema, Denies edema, Denies leg edema, Denies lightheadedness, Denies palpitations, Denies dyspnea, Denies dyspnea on exertion and Denies orthopnea Resp Denies cough, Denies dyspnea and Denies dyspnea on exertion GI Denies hematochezia and Denies change in stool character Musc Denies abnormal gait, Denies muscle cramps, Denies muscle weakness, Denies numbness, Denies radiating pain into limb and Denies tingling Neuro Denies abnormal gait, Denies dizziness, Denies syncope, Denies numbness, Denies tingling and Denies weakness Endo Denies palpitations Physical Exam Vital Signs: Last Vital Signs Pulse 68 02/11/25 13:47 BP 100/68 02/11/25 13:47 BMI result Body Mass Index 29.1 Const General: comfortable and no acute distress Orientation/consciousness: patient oriented x3 HEENT Other: Unremarkable Head: Yes normal to inspection Neck Neck: Yes normal visual inspection Chest Chest palpation & inspection: normal inspection of the chest Resp Auscultation: clear to auscultation bilaterally Cardio Palpation: normal PMI Heart sounds: S1 normal heart sound present, S2 normal heart sound present, no gallops, no murmurs and no rubs GI Palpation (GI): Soft to palpation Back/Spine/Pelvis Other: unremarkable Skin General skin exam: no rashes or lesions noted Neuro General: patient oriented x3 Extrem General: Yes normal to inspection Psych Mental Status: mental status grossly normal Office Procedures EKG Details: EKG with sinus bradycardia at 56/Min; nonspecific ST-T changes; [place] [id number], Complete Assessment & Plan Assessment & Plan (1) Paroxysmal atrial fibrillation: Code(s): I48.0 - Paroxysmal atrial fibrillation Category: Medical (2) Encounter for monitoring anti-arrhythmic therapy: Code(s): Z51.81 - Encounter for therapeutic drug level monitoring; Z79.899 - Other exterminator helper (current) drug therapy Category: Medical Plan Cardiac studies reviewed. Echocardiogram with LVEF of 55-60%. Moderately dilated left atrium. Otherwise unremarkable. Holter shows underlying sinus rhythm. Atrial fibrillation with rapid rate episodes are noted with a burden of about 2.4%. Longest episode about 3 hours and 30 minutes. (before Flecainide). In the more recent Holter from last month, there are some runs of narrow complex tachycardia which could be atrial flutter but not clear. Up to 148/Min. However, quite brief and do not last more than a few minutes. Coronary CTA reported normal. We had a long discussion about medical management as currently done versus EP referral/ablation. After discussing the pros and cons, he stated that he would rather just stay on the current medications. If indeed his symptoms get any worse, then he would consider ablation at that time. Advised him to contact us with any ongoing concerns or worsening palpitations or in fact any other cardiac symptoms. He understands that. In the past, he has had some hematuria but that seems resolved at this time. On Eliquis. We will see him back in about 6 months' time. He will contact us with any interim concerns. Coding Level of Care Code Est Pt Level 4 (19227) Complex EM visit Add On G2211 Diagnoses Paroxysmal atrial fibrillation I48.0 Encounter for monitoring anti-arrhythmic therapy Z51.81; Z79.899 CPT Codes EKG - CPT: 72655-[id number], Complete ([id number])
--- OUTSIDE RECORDS SUMMARY | 2025-02-11 16:17 | XMS_ITS | Patient Health Record ---
Author Organization [facility] Address [address] [place] [address] Care Team Providers Care Detective Sergeant Name Role Phone Forrest Butterfield MD Primary Care Provider Aiden Watson Unavailable [phone] Allergies Allergen (clinical drug ingredient) Drug/Non Drug Allergy documented on EMR Reaction Allergy Type Onset Date Status Dust Mite Mixed Allergen Ext Unknown Drug Allergy Active Novocain Unknown Drug Allergy Active Reason For Referral No Information Medications Medication SIG (Take, Route, Frequency, Duration) Notes Start Date End Date Status Multivitamin Active Immunizations Vaccine Route Administration Date Status Comme nts Influenza Unknown 08/04/2020 Refused Social History Tobacco Use: Social History Observation Description Date Details (start date - stop date) Never Smoker NA - NA Tobacco Use/Smoking Question Answer Notes Patient is [...] Never (0 point) Points 2 Interpretation Negative Section Notes: Nonsmoker; no sig. alcohol Problems Problem Type SNOMED Code ICD Code Onset Dates Problem Status W/U Status Risk Notes Problem [id number] Encounter for screening for malignant neoplasm of colon (Z12.11) Active confirmed Problem [id number] Preprocedural examination (Z01.818) Active confirmed Plan Of Treatment Future Test Test Name Order Date COLONOSCOPY 08/04/2020 Insurance Providers Payer Name Payer Address Payer Phone Subscriber Number Group Number Insured Name Patient Relationship to Insured Coverage Start Date Coverage End Date [facility] [address] [place] [address] [id number] HARVINDER DOMINGUEZ Self - patient is the insured Medical (General) History Medical History History ICD Code Kidney Stones--ESWL Enlarged prostate--seeing ur ologist for possible prosate biopsy later in 2019 Negative screening colonoscopy in 12/[address] Ness Denteresa [place],DM,CVA,Lung disease,renal dise ase Surgical History Surgery Date(Month/Year) Prostate - laser surgery
== END 2025-02-11 14:16 | disposition home or self-care (01) ==
PROVIDERS: PCP Internal Medicine; Visit Provider Internal Medicine
DX: I48.0 Paroxysmal atrial fibrillation (principal); Z51.81 Encounter for therapeutic drug level monitoring; Z79.899 Other long term (current) drug therapy
CPT/HCPCS: 93010; 99214; G2211

== ENCOUNTER → 2025-02-11 13:41 | Outpatient (BNVA) | payer MEDICARE, SELFPAY | PROVIDERS: PCP Internal Medicine; Visit Provider Internal Medicine | DX: I48.0 Paroxysmal atrial fibrillation (principal); Z51.81 Encounter for therapeutic drug level monitoring; Z79.899 Other long term (current) drug therapy | CPT/HCPCS: 93005; 99212 ==

== ENCOUNTER 2025-03-12 07:16 | Outpatient (REF) | payer MEDICARE, SELFPAY ==
[2025-03-12 08:54] LABS: PSA,Total (Free>4and<10) 15.72 ng/mL (0.00-4.00)
== END 2025-03-12 07:17 | disposition home or self-care (01) ==
LOC: HO.LAB 07:16
PROVIDERS: Visit Provider Urology
DX: R97.20 Elevated prostate specific antigen [PSA] (principal); Z12.5 Encounter for screening for malignant neoplasm of prostate
CPT/HCPCS: 36415; 84153

== ENCOUNTER 2025-03-21 14:27 | Outpatient (AMB) | payer MEDICARE, SELFPAY ==
--- OUTSIDE RECORDS SUMMARY | 2025-03-21 14:30 | XMS_ITS | Patient Health Record ---
Author Organization [facility] Address [address] [place] [address] Care Team Providers Care Hand Glass Cutter Name Role Phone Forrest Butterfield MD Primary Care Provider Aiden Watson Unavailable [phone] Allergies Allergen (clinical drug ingredient) Drug/Non Drug [...] Problem Status W/U Status Risk Notes Problem [id number] Encounter for screening for malignant neoplasm of colon (Z12.11) Active confirmed Problem [id number] Preprocedural examination (Z01.818) Active confirmed Plan Of Treatment Future Test Test Name Order Date COLONOSCOPY 08/04/2020 Insurance Providers Payer Name Payer Address Payer Phone Subscriber Number Group Number Insured Name Patient Relationship to Insured Coverage Start Date Coverage End Date [facility] [address] [place] [address] [phone] [id number] HARVINDER DOMINGUEZ Self - patient is the insured Medical (General) History Medical History History ICD Code Kidney Stones--ESWL Enlarged prostate--seeing ur ologist for possible prosate biopsy later in 2019 Negative screening colonoscopy in 12/[address] Ness Denteresa [place],DM,CVA,Lung disease,renal dise ase Surgical History Surgery Date(Month/Year) Prostate - laser surgery
--- NOTE | 2025-03-21 14:33 | A.OFFVIS_ITS ---
Intake Visit Reasons: 6m/PSA Intake Note: Patient is present for 6M/PSA Urology Medication:NONE Antibiotic Allergy:NONE Blood Thinner:APIXABAN Carpenter Assistant Installer Required: No Allergies procaine [From Novocain] Allergy (Mild, Verified 03/21/25 14:39) RASH FRESH FRUIT Allergy (Severe, Uncoded 03/21/25 14:39) ANAPHYLAXIS HPI Comments Details: Carrington is a pleasant male. He is a patient of Dr. Chambers. he is seen for the following urologic condition - elevated PSA - lower urinary tract symptoms - nephrolithiasis PSA remains high Extremely large prostate on MRI 06/03 Discussed trial of dutasteride Repeat MRI in six-month Prior cystoscopy Mild prostatic regrowth On Eliquis for AFib Had complications with original prostate procedure in 2012 Lower urinary tract symptoms Laser prostatectomy 04/2013 - postprocedure bleeding and stayed in hospital for 5 days Has had good stability with effective urination Minimal nocturia Elevated PSA - Biopsy 01/31 Negative MRI - 06/03 - 150 g prostate, PI-RADS 3 intermediate suspicion 1 area otherwise no prominent changes PSA 2020 nicko from 8-12.5 - 2020 F 22%, 06/03 12.9, 09/03 12, 10/05 11, 05/06 13.8 Prostate biopsy - performed 01/31 12.52 Negative Tried finasteride - January 2021 but did not tolerate Understands there is a risk of delay in diagnosis Nephrolithiasis Stable ultrasound with renal cyst [facility] Medical History History of non-ST elevation myocardial infarction (NSTEMI) Urgency of micturition History of renal calculi Elevated PSA Post-operative nausea and vomiting Surgical History History of right inguinal hernia repair S/P right inguinal hernia repair (07/21/21) History of tonsillectomy History of prostate surgery Hx of colonoscopy Hx of lithotripsy Family History Mother No problems noted. Father No problems noted. Social History Housing: House Alcohol intake: current Alcohol intake frequency: holidays/special occasions only Comment: medicated, see MAR Patient Tobacco Use Status: Never used Tobacco e-Cigarette/Vaping Use: Never Used Second Hand Smoke Exposure: No service: No Current occupational status: retired Cognitive needs: No Hearing needs: No Vision needs: No Review of Systems Const Denies chills and Denies fever(s) Card Reports no additional complaints and Denies syncope Resp Denies cough GI Denies abdominal pain and Denies heartburn Reports as per HPI and Denies change in libido Neuro Denies syncope Psych Denies change in libido Endo Denies change in libido Physical Exam Const General: cooperative, healthy appearing, comfortable and no acute distress Orientation/consciousness: patient oriented x3 HEENT Face and sinus: Yes normal facial exam Mouth: moist mucous membranes Neck Neck: Yes normal visual inspection, Yes full ROM and Yes trachea midline Chest Chest palpation & inspection: normal inspection of the chest Resp Effort & Inspection: normal respiratory effort, able to speak in complete sentences and no respiratory distress GI Inspection: Yes normal to inspection Back/Spine/Pelvis Cervical Spine: normal cervical lordosis Thoracic/Lumbar Spine: thoracic and lumbar spine normal to inspection Skin General skin exam: no rashes or lesions noted Neuro General: patient oriented x3, gait normal, tone normal and moves all extremities Extrem General: Yes normal to inspection and Yes capillary refill normal Assessment & Plan Assessment & Plan (1) Elevated PSA: Code(s): R97.20 - Elevated prostate specific antigen [PSA] Category: Medical (2) BPH w urinary obs/LUTS: Code(s): N40.1 - Benign prostatic hyperplasia with lower urinary tract symptoms; N13.8 - Other obstructive and reflux uropathy Category: Medical Plan Six-month follow-up imaging and lab work Trial of dutasteride Orders: Orders MR Prostate wo/w con 6 Months R97.20 - Elevated prostate specific antigen [PSA] PSA,Total (Free>4and<10) 6 Months R97.20 - Elevated prostate specific antigen [PSA] Medications: New dutasteride 0.5 mg PO DAILY 30 days 30 caps 1RF N13.8 - Other obstructive and reflux uropathy, N32.0 - Bladder-neck obstruction, N40.1 - Benign prostatic hyperplasia with lower urinary tract symptoms, R97.20 - Elevated prostate specific antigen [PSA] Patient Instructions: This note is constructed using voice recognition software. While every effort has been made to ensure accuracy pick up driver errors may have been included. Imaging studies, laboratory and physical exam results were discussed and reviewed in detail. No major barriers to patient understanding were identified. An opportunity to ask questions regarding the treatment plan was provided. All questions were answered. The patient expressed understanding and agreement with the above treatment plan. The patient is aware they should contact our office by phone for worsening of their current condition or the appearance of new urologic symptoms. Compliance is encouraged with any medications and followup testing that is ordered. It is a privilege to participate in the urologic care of your patient. If you have any questions or concerns regarding treatment for the above conditions, or other urologic issues, please do not hesitate to contact me. The office telephone contact is [phone]. Sincerely, Dr Kelton Griffith MD, [facility] - Urology Compassionate Specialist Care for the Genitourinary System Coding Level of Care Code Est Pt Level 4 (77598) Complex EM visit Add On G2211 Diagnoses Elevated PSA R97.20 BPH w urinary obs/LUTS N40.1; N13.8
== END 2025-03-21 15:16 | disposition home or self-care (01) ==
LOC: HO.HUSH 14:28
PROVIDERS: PCP Internal Medicine; Visit Provider Urology
DX: R97.20 Elevated prostate specific antigen [PSA] (principal); N40.1 Benign prostatic hyperplasia with lower urinary tract symptoms; N13.8 Other obstructive and reflux uropathy; Z13.9 Encounter for screening, unspecified
CPT/HCPCS: 99214; G2211

== ENCOUNTER → 2025-03-21 14:27 | Outpatient (BNVA) | payer MEDICARE, SELFPAY | PROVIDERS: PCP Internal Medicine; Visit Provider Urology | DX: R97.20 Elevated prostate specific antigen [PSA] (principal); N40.1 Benign prostatic hyperplasia with lower urinary tract symptoms; N13.8 Other obstructive and reflux uropathy; N32.0 Bladder-neck obstruction; Z87.442 Personal history of urinary calculi | CPT/HCPCS: 81003; 99212 ==

== ENCOUNTER 2025-05-19 15:25 | Outpatient (AMB) | payer MEDICARE, SELFPAY ==
[2025-05-19 15:30] VITALS: BP 108/72; PULSE 58; TEMP 36.1; O2SAT 94; BMI 28.5
--- NOTE | 2025-05-19 15:30 | MHC.PC.OV ---
Vital Signs 05/19/25 15:30 Height 5 ft 9 in Weight 193 lb BMI 28.5 BP 108/72 Blood Pressure Location Lt brachial Position Sitting Pulse 58 Pulse Source Pulse Oximeter Temp 97.0 F Temp Source Temporal Artery Scan Pulse Oximetry (%) 94 Oxygen Delivery Method Room Air Intake Visit Reasons: ALEX DR Butterfield Allergies procaine (From Novocain) Allergy (Mild, Verified 05/19/25 15:41) RASH FRESH FRUIT Allergy (Severe, Uncoded 05/19/25 15:41) ANAPHYLAXIS Medication List - Last Reconciled 05/19/25 by Pamela Bell PA-C apixaban (Eliquis) 5 mg PO BID 90 days brimonidine 0.2% drps ophthalmic (eye) dutasteride 0.5 mg PO DAILY flecainide 50 mg PO Q12H metoprolol tartrate 25 mg PO BID multivitamin 1 tab PO DAILY Tobacco use date assessed: 05/19/25 Fall risk assessment: No Falls in past year Last assessed Fall Risk: 05/19/25 Dental Screening Dental Screen Date: 05/19/25 Did you have a dental visit in the last 12 months?: Yes Did you have a dental problem in the last 6 months where you did not have access to dental care?: No Was dental information given to patient?: Patient has dentist HPI ALEX DR Butterfield HPI Details 69-year-old male with past medical history of paroxysmal atrial fibrillation and BPH last seen by Dr. Butterfield 04/2024 coming in for transfer of care. In review of the notes, patient was seen by [facility] urology 03/2025 PSA remains high, trial of dutasteride and ordered for MRI and PSA in 6 months. Seen by cardiology 02/2025 for follow up on holter monitor her fibrillation 2.4% of the time discussed medication versus ablation plan to continue on medication at this time and follow up in 6 months. Presenting with management of atrial fibrillation and benign prostatic hyperplasia. Diagnosed with atrial fibrillation with a burden of 2.4%, experiencing episodes lasting over 3-1/2 hours. Episodes of atrial flutter noted, with a risk of blood clots necessitating anticoagulation therapy. Prostate enlargement noted with PSA levels increasing from 12 to 15, managed with dutasteride to avoid surgical intervention. Noted wax buildup, cleared during the visit. Dermatology: Enrique clark colonoscopy: 2020 repeat in 10 years PSA: UTD follows with urology eye doctor: 2-3x per year with Margarito CARDOSO Medical History Right inguinal hernia History of non-ST elevation myocardial infarction (NSTEMI) Urgency of micturition History of renal calculi Elevated PSA Post-operative nausea and vomiting Surgical History History of right inguinal hernia repair S/P right inguinal hernia repair (07/21/21) History of tonsillectomy History of prostate surgery Hx of colonoscopy Hx of lithotripsy Family History Mother No problems noted. Father No problems noted. Social History Housing: House Alcohol intake: current Alcohol intake frequency: holidays/special occasions only Comment: medicated, see MAR Patient Tobacco Use Status: Never used Tobacco e-Cigarette/Vaping Use: Never Used Second Hand Smoke Exposure: No service: No Current occupational status: retired Cognitive needs: No Hearing needs: No Vision needs: No Questionnaire PHQ-9 Over the last 2 weeks, how often have you been bothered by any of the following problems? 1. Little interest or pleasure in doing things: not at all 2. Feeling down, depressed, or hopeless: not at all 3. Trouble falling or staying asleep, or sleeping too much: not at all 4. Feeling tired or having little energy: not at all 5. Poor appetite or overeating: not at all 6. Feeling bad about yourself - or that you are a failure or have let yourself or your family down: not at all 7. Trouble concentrating on things, such as reading the newspaper or watching television: not at all 8. Moving or speaking so slowly that other people could have noticed. Or the opposite - being so fidgety or restless that you have been moving around a lot more than usual: not at all 9. Thoughts that you would be better off or of hurting yourself in some way: not at all Total score: 0 Depression Screening Interpretation: Negative Depression Screening Done: Yes 27151 - PHQ-9 Billing: Yes Source: Developed by Drs. Aiden Lyn, Zenaida Ness, Gray Reich and colleagues, with an educational arti from [employer]. Thrive Questionnaire Date Thrive assessed: 05/19/25 I am a: Patient What is your living situation today?: I have a steady place to live Within the past 12 months, did the food you bought not last and you didn't have the money to get more?: Never true Within the past 12 months, did you worry whether your food would run out before you got money to buy more?: Never true Do you have trouble paying for medicines?: No Do you have trouble getting transportation to medical appointments?: No Do you have trouble paying your heating and electricity bill?: No Do you have trouble taking care of your child, family member or friend?: No Do you have trouble with day-to-day activities such as bathing, preparing meals, shopping, managing finances, etc.?: No Are you currently unemployed and looking for a job?: No Are you interested in more education?: No THRIVE Score: 0 AUDIT C Alcohol Use Questionnaire (AUDIT-C) 1. How often do you have a drink containing alcohol?: Monthly or less 2. How many drinks containing alcohol do you have on a typical day when you are drinking?: 1 or 2 3. How often do you have six or more drinks on one occasion?: Never Total Score: 1 Score Reviewed/Action Taken: Yes DIANE-7 AMB Questionnaire DIANE-7 Date DIANE - 7 assessed: 05/19/25 Feeling nervous, anxious, or on edge: 0 = Not at all Not being able to stop or control worryin = Not at all Worrying too much about different things: 0 = Not at all Trouble relaxin = Not at all Being so restless that it is hard to sit still: 0 = Not at all Becoming easily annoyed or irritable: 0 = Not at all Feeling afraid as if something awful might happen: 0 = Not at all Total DIANE-7 score (0-4 normal; 5-9 mild; 10-14 moderate; 15-21 severe): 0 Source: Developed by Zenaida Chin Kurt Kroenke and colleagues, with an educational arti from [employer]. DIANE-7 Assessment Billing DIANE-7 Assessment Tool: DIANE-7 Assessment 13255 Review of Systems Const Denies body aches, Denies chills, Denies fever(s), Denies headache(s) and Denies poor appetite Eyes Reports no additional complaints ENT Denies dysphagia, Denies dizziness, Denies headache(s) and Denies odynophagia Card Denies chest pain, Denies syncope, Denies edema, Denies irregular heart rhythm, Denies lightheadedness and Denies dyspnea Resp Denies cough and Denies dyspnea GI Denies abdominal pain, Denies constipation, Denies dysphagia, Denies diarrhea, Denies nausea, Denies odynophagia and Denies vomiting Reports no additional complaints Musc Reports no additional complaints and Denies abnormal gait Skin/Breast Reports system reviewed and no additional complaints, except as documented Neuro Denies abnormal gait, Denies dizziness, Denies syncope and Denies headache(s) Psych Reports no additional complaints Physical exam (Primary Care) Vital Signs: Last Vital Signs Temp 97.0 F 05/19/25 15:30 Pulse 58 05/19/25 15:30 BP 108/72 05/19/25 15:30 Pulse Ox 94 05/19/25 15:30 Oxygen Delivery Method Room Air 05/19/25 15:30 BMI result Body Mass Index 28.5 Tobacco/Smoking Status: Tobacco use Status Tobacco use date assessed 05/19/25 05/19/25 15:34 Patient Tobacco Use Status Never used Tobacco 05/19/25 15:34 e-Cigarette/Vaping Use Never Used 05/19/25 15:34 PHQ-9: PHQ-9 Score PHQ-9: Total score 0 05/19/25 16:49 Depression Screening Interpretation: Negative Thrive Assessment: Date of Thrive Assessment Date Thrive assessed 05/19/25 05/19/25 15:34 Const General: cooperative, healthy appearing, comfortable and no acute distress Orientation/consciousness: patient oriented x3 HENMT Head: Yes normocephalic Ears: hearing grossly normal bilaterally, TM's normal bilaterally and Abnormal EAC present excessive cerumen on the right General nose exam: Normal external nose present Face and sinus: Yes normal facial exam and Yes sinuses nontender Mouth: Normal oral and palatal mucosa present and tongue normal Throat: Yes posterior oropharynx normal Eyes General: appearance normal, both eyes and all related structures Conjunctivae: conjunctivae normal Pupils: Equal, round and reactive pupils present EOM: EOMs intact bilaterally and No Nystagmus present Neck Neck: Yes full ROM and Yes no lymphadenopathy Chest Chest palpation & inspection: normal inspection of the chest Resp Effort & Inspection: normal respiratory effort Auscultation: clear to auscultation bilaterally, no crackles, no rales, no rhonchi and no wheezes Cardio Rate: regular rate Rhythm: regular rhythm Peripheral pulses: radial pulses present and dorsalis pedis present GI Inspection: Yes normal to inspection and No Abdominal wall edema Palpation (GI): Soft to palpation, not firm and nontender Auscultation: normal bowel sounds Rectal Exam - Male: Yes deferred General: Yes no CVA tenderness Back/Spine/Pelvis Back: no CVA tenderness Skin General skin exam: no rashes or lesions noted Neuro General: patient oriented x3 Cranial nerves: Yes Equal, round and reactive pupils present, Yes Midline tongue present, Yes Ability to bilaterally elevate shoulders present and No Nystagmus present Gait exam (Neuro): Normal gait present Extrem General: Yes normal to inspection, Yes full ROM and No edema Psych Speech and movement: Normal speech and movement present Affect: normal affect Attitude: cooperative Insight: Good insight present (Psych) Judgement: Good judgement present (Psych) Office Procedures Cerumen Removal From which ear canal was the cerumen removed: right Removal: cerumen loop/spoon Notes: patient tolerated procedure well, no complications and ear canal clear 56138-Tbe Wax Removal by Spoon/Curette Immunizations Tenivac (PF) 5 Lf unit-2 Lf unit/0.5 mL intramuscular syringe Performing Provider: Pamela Bell PA-C Performing [facility] Administered by: Estela Paniagua CMA on 05/19/25 16:09 Dose Route Admin Location Dispensed Lot Number Expiration Date ND Clinical Care Leader 0.5 mL IM Left Tricep 0.5 mL [id number] 02/10/27 99645-645-06 [employer] Total Dispensed Waste 0.5 mL 0 % VIS Given Date VIS Provided VIS Publication Date 05/19/25 Single Vaccine 21 Eligibility Eligibility Date Funding Source Not [facility] Eligible 05/19/25 Private Coding Level of Care Code Est Pt Prev Care >65y(68154) Diagnoses Physical exam Z00.00 Paroxysmal atrial fibrillation I48.0 BPH (benign prostatic hyperplasia) N40.0 Screening for hypercholesterolemia Z13. Excessive cerumen in right ear canal H61.21 CPT Codes Office Procedure - CPT: 91151-Bkt Wax Removal by Spoon/Curette ([id number]) Additional Codes DIANE-7 Assessment Billing - DINAE-7 Assessment Tool: DIANE-7 Assessment 55962 ([id number]) PHQ-9 - 77565 - PHQ-9 Billing: Yes ([id number]) Assessment & Plan Assessment & Plan (1) Physical exam: Code(s): Z00.00 - Encounter for general adult medical examination without abnormal findings Category: Medical Plan: Patient is up-to-date on all recommended routine screenings and vaccinations for his age. He was given his tetanus vaccine today as he was overdue for this. Healthy diet and regular exercise is encouraged. Blood work is ordered (2) Paroxysmal atrial fibrillation: Code(s): I48.0 - Paroxysmal atrial fibrillation Category: Medical Plan: Continue to follow up with [facility] Cardiology currently on antiarrhythmic therapy with flecainide and full oral anticoagulation with Eliquis. Consideration for ablation was proposed in his last cardiology visit and he will continue to follow with them going forward. Currently asymptomatic at this time (3) BPH (benign prostatic hyperplasia): Code(s): N40.0 - Benign prostatic hyperplasia without lower urinary tract symptoms Category: Medical Plan: Patient is following with Urology and recently started on dutasteride. He will have a repeat MRI with PSA in [address] Griffith. (4) Screening for hypercholesterolemia: Code(s): Z13.220 - Encounter for screening for lipoid disorders Category: Medical Plan: Blood work is ordered (5) Excessive cerumen in right ear canal: Code(s): H61.21 - Impacted cerumen, right ear Category: Medical Plan: Cerumen was successfully removed using lighted curette. Patient tolerated the procedure well and TM was visualized as intact with well aerated middle ear spaces without perforation or retraction. Follow up as needed for this concern. Avoid the use of Q-tips Plan The management of atrial fibrillation involves continued use of anticoagulation therapy to mitigate the risk of thromboembolic events. The patient is advised to monitor symptoms and consider ablation if episodes become more frequent or symptomatic. Medical management with flecainide is to be continued to maintain normal rhythm, with ablation as a potential future intervention if necessary. For benign prostatic hyperplasia, dutasteride therapy is ongoing to reduce prostate size and avoid surgical intervention. A follow-up MRI is planned to assess the effectiveness of the medication. Regular ophthalmology follow-ups are recommended to monitor the risk of retinal detachment, with immediate consultation advised if symptoms such as flashes or floaters occur. Dermatology consultation is suggested for the skin lesion if any changes are noted. Routine blood work is planned to monitor overall health, with fasting required for cholesterol screening. This note was constructed using voice recognition software. While every effort has been made to ensure accuracy and social studies department chair, still areas may have been included sometimes these areas may affect the content or meeting of the given symptoms. Total time spent caring for the patient today was 30 minutes. This includes time spent before the visit reviewing the chart, time spent during the visit, and time spent after the visit and documentation. Patient was informed and verbally consented to the use of an ambient scribe for clinic note documentation during this visit. Orders: Orders Complete Blood Count Auto Diff Today I48.0 - Paroxysmal atrial fibrillation, Z00.00 - Encounter for general adult medical examination without abnormal findings Vitamin D 25-OH Total Today I48.0 - Paroxysmal atrial fibrillation, Z00.00 - Encounter for general adult medical examination without abnormal findings Lipid Panel Today Z13.220 - Encounter for screening for lipoid disorders Td Immunization 05/19/25 Z23 - Encounter for immunization Comprehensive Met. Panel Today I48.0 - Paroxysmal atrial fibrillation, Z00.00 - Encounter for general adult medical examination without abnormal findings TSH reflex Free T4 Today I48.0 - Paroxysmal atrial fibrillation, Z00.00 - Encounter for general adult medical examination without abnormal findings Free T4 (Free Thyroxine) Today I48.0 - Paroxysmal atrial fibrillation, Z00.00 - Encounter for general adult medical examination without abnormal findings Vitamin B12 and Folate Today I48.0 - Paroxysmal atrial fibrillation, Z13.21 - Encounter for screening for nutritional disorder
--- OUTSIDE RECORDS SUMMARY | 2025-05-19 15:41 | XMS_ITS | Patient Health Record ---
Author Organization [facility] Address [address] [place] [address] Care Team Providers Care Power Plant Assistant Name Role Phone Forrest Butterfield MD Primary Care Provider Aiden Watson Unavailable [phone] Allergies Allergen (clinical drug ingredient) Drug/Non Drug [...] Problem Status W/U Status Risk Notes Problem [id number] Encounter for screening for malignant neoplasm of colon (Z12.11) Active confirmed Problem [id number] Preprocedural examination (Z01.818) Active confirmed Plan Of Treatment Future Test Test Name Order Date COLONOSCOPY 08/04/2020 Insurance Providers Payer Name Payer Address Payer Phone Subscriber Number Group Number Insured Name Patient Relationship to Insured Coverage Start Date Coverage End Date [facility] [address] [place] [address] [phone] [id number] HARVINDER DOMINGUEZ Self - patient is the insured Medical (General) History Medical History History ICD Code Kidney Stones--ESWL Enlarged prostate--seeing ur ologist for possible prosate biopsy later in 2019 Negative screening colonoscopy in 12/[address] Ness Denteresa SC,DM,CVA,Lung disease,renal dise ase Surgical History Surgery Date(Month/Year) Prostate - laser surgery
== END 2025-05-19 16:15 | disposition home or self-care (01) ==
LOC: HO.HMCH 15:25
PROVIDERS: PCP Internal Medicine
DX: Z23 Encounter for immunization (principal)

== ENCOUNTER → 2025-05-19 15:25 | Outpatient (BNVA) | payer MEDICARE, SELFPAY | PROVIDERS: PCP Internal Medicine | DX: Z00.00 Encounter for general adult medical examination without abnormal findings (principal); I48.0 Paroxysmal atrial fibrillation; N40.0 Benign prostatic hyperplasia without lower urinary tract symptoms; H61.21 Impacted cerumen, right ear; Z23 Encounter for immunization | CPT/HCPCS: 69210; 90471; 90714; 96127; 99397 ==

== ENCOUNTER 2025-05-20 06:49 | Outpatient (REF) | payer MEDICARE, SELFPAY ==
[2025-05-20 06:58] LABS: MANUAL DIFF FLAG NO
[2025-05-20 07:32] LABS: Hematocrit 41.8 % (42.0-52.0); Hemoglobin 14.8 g/dl (14.0-18.0); Imm Gran Abs Auto 0.01 X10*3/uL (0.00-0.03); Imm Gran Pct Auto 0.3 % (0.0-0.4); Lymphocytes Absolute Auto 1.4 X10*3/uL (1.2-4.9); Mean Corpuscular HGB Conc 35.4 g/dl (31.0-36.0); Mean Corpuscular Hemoglobin 32.5 pg (27.0-33.0); Mean Corpuscular Volume 91.9 fL (80.0-98.0); NRBC Abs Auto 0.000 X10*3/uL (0.0-0.012); NRBC Pct Auto 0.0 /100WBC (0.0-0.2); Platelet Count 176 X10*3/uL (160-400); Red Blood Count 4.55 X10*6/uL (4.60-5.80); White Blood Count 3.9 X10*3/uL (4.8-10.8)
[2025-05-20 08:03] LABS: Alanine Aminotransferase 32 U/L (0-40); Albumin Level 4.6 g/dL (3.5-5.0); Alkaline Phosphatase 59 U/L (39-117); Anion Gap 13 (12-20); Aspartate Amino Transferase 30 U/L (5-37); Blood Urea Nitrogen 21 mg/dL (9-16); Calcium 9.1 mg/dL (8.4-10.2); Carbon Dioxide 24 mmol/L (22-29); Chloride 108 mmol/L (96-108); Cholesterol 165 mg/dL (<200); Estimated Glomerular Filt Rate > 60; HDL Cholesterol 45 mg/dL (>40); Potassium 4.1 mmol/L (3.3-5.1); Sodium 141 mmol/L (135-145); Total Protein 6.6 g/dL (6.5-8.0); Triglycerides 162 mg/dL (<150)
[2025-05-20 08:09] LABS: Free T4 (Free Thyroxine) 0.87 ng/dL (0.71-1.85)
[2025-05-20 08:26] LABS: Folate 12.8 ng/mL (> or = 4.0); Vitamin B12 410 pg/mL (200-900)
== END 2025-05-20 06:50 | disposition home or self-care (01) ==
LOC: HO.LAB 06:49
DX: Z00.00 Encounter for general adult medical examination without abnormal findings (principal); I48.0 Paroxysmal atrial fibrillation; Z13.220 Encounter for screening for lipoid disorders; Z13.21 Encounter for screening for nutritional disorder
CPT/HCPCS: 36415; 80053; 80061; 82306; 82607; 82746; 84439; 84443; 85025

== ENCOUNTER 2025-08-14 12:56 | Outpatient (AMB) | payer MEDICARE, SELFPAY ==
[2025-08-14 13:06] VITALS: BP 110/62; PULSE 56; BMI 28.3
--- NOTE | 2025-08-14 13:06 | MHC.OFFVIS ---
Vital Signs 08/14/25 13:06 Height 5 ft 9 in Weight 191 lb 12.835 oz BMI 28.3 BP 110/62 Blood Pressure Location Lt brachial Position Sitting Pulse 56 Pulse Source Monitor Intake Visit Reasons: 6 mth f/up Allergies procaine (From Novocain) Allergy (Mild, Verified 05/19/25 15:41) RASH FRESH FRUIT Allergy (Severe, Uncoded 05/19/25 15:41) ANAPHYLAXIS Medication List - Last Reconciled 08/14/25 by Juan Antonio Edwards MD apixaban (Eliquis) 5 mg PO BID 90 days brimonidine 0.2% drps ophthalmic (eye) dutasteride 0.5 mg PO DAILY flecainide 50 mg PO Q12H metoprolol tartrate 25 mg PO BID multivitamin 1 tab PO DAILY HPI Comments Details: Carrington returns for follow-up regarding paroxysmal atrial fibrillation. In the past, he was having palpitations and that led to monitoring revealing atrial fibrillation/flutter with rapid rates. He was initially put on beta-blockers but still had palpitations and hence started on flecainide. He still gets some palpitations off and on but not too frequently. No other complaints like angina or shortness of breath. [facility] Medical History Right inguinal hernia History of non-ST elevation myocardial infarction (NSTEMI) Urgency of micturition History of renal calculi Elevated PSA Post-operative nausea and vomiting Surgical History History of right inguinal hernia repair S/P right inguinal hernia repair (07/21/21) History of tonsillectomy History of prostate surgery Hx of colonoscopy Hx of lithotripsy Family History Mother No problems noted. Father No problems noted. Social History Housing: House Alcohol intake: current Alcohol intake frequency: holidays/special occasions only Comment: medicated, see MAR Patient Tobacco Use Status: Never used Tobacco e-Cigarette/Vaping Use: Never Used Second Hand Smoke Exposure: No service: No Current occupational status: retired Cognitive needs: No Hearing needs: No Vision needs: No Review of Systems Const Denies weakness ENT Denies dizziness Card Denies chest pain, Denies chest pain with activity, Denies syncope, Denies rapid heart rate, Denies pedal edema, Denies edema, Denies leg edema, Denies lightheadedness, Denies palpitations, Denies dyspnea, Denies dyspnea on exertion and Denies orthopnea Resp Denies cough, Denies dyspnea and Denies dyspnea on exertion GI Denies hematochezia and Denies change in stool character Musc Denies abnormal gait, Denies muscle cramps, Denies muscle weakness, Denies numbness, Denies radiating pain into limb and Denies tingling Neuro Denies abnormal gait, Denies dizziness, Denies syncope, Denies numbness, Denies tingling and Denies weakness Endo Denies palpitations Physical Exam Vital Signs: Last Vital Signs Pulse 56 08/14/25 13:06 BP 110/62 08/14/25 13:06 BMI result Body Mass Index 28.3 Const General: comfortable and no acute distress Orientation/consciousness: patient oriented x3 HEENT Other: Unremarkable Head: Yes normal to inspection Neck Neck: Yes normal visual inspection Chest Chest palpation & inspection: normal inspection of the chest Resp Auscultation: clear to auscultation bilaterally Cardio Palpation: normal PMI Heart sounds: S1 normal heart sound present, S2 normal heart sound present, no gallops, no murmurs and no rubs GI Palpation (GI): Soft to palpation Back/Spine/Pelvis Other: unremarkable Skin General skin exam: no rashes or lesions noted Neuro General: patient oriented x3 Extrem General: Yes normal to inspection Psych Mental Status: mental status grossly normal Office Procedures EKG Details: EKG with sinus bradycardia at 56/Min; incomplete right bundle-branch block pattern; nonspecific ST-[place] changes; [place] [address]-Ndrdlngqnkoststcx, Complete Assessment & Plan Assessment & Plan (1) Paroxysmal atrial fibrillation: Code(s): I48.0 - Paroxysmal atrial fibrillation Category: Medical (2) Encounter for monitoring anti-arrhythmic therapy: Code(s): Z51.81 - Encounter for therapeutic drug level monitoring; Z79.899 - Other terminal block assembler (current) drug therapy Category: Medical Plan Cardiac studies reviewed. Echocardiogram 2022 with LVEF of 55-60%. Moderately dilated left atrium. Otherwise unremarkable. Initial Holter with underlying sinus rhythm. Atrial fibrillation with rapid rate episodes are noted with a burden of about 2.4%. Longest episode about 3 hours and 30 minutes. (before Flecainide). In the more recent Holter from this year, there are some runs of narrow complex tachycardia which could be atrial flutter vs SVT Up to 148/Min. Not prolonged. Coronary CTA reported normal. As he is still getting palpitations in spite of antiarrhythmics, we discussed about EP referral for consideration of ablation. Suspect he will need ablation of flutter/fibrillation and possibly others if there is clear evidence of any AV nikky reentry as well. Otherwise, we will also screen him for obstructive sleep apnea with a home sleep study. Follow up with us after EP appointment. Discussion Notes During the consultation, we discussed the management of atrial fibrillation, including the continuation of current medications or the option of an ablation procedure. The patient expressed a preference for ablation to prevent future complications, and we agreed to proceed with a referral to an biomedical electronics technician. We also discussed the potential role of sleep apnea in exacerbating atrial fibrillation and the benefits of a home sleep study to confirm this diagnosis. Patient was informed and verbally consented to the use of an ambient scribe for clinic note documentation during this visit. Orders: Orders RT home sleep study Today G47.33 - Obstructive sleep apnea (adult) (pediatric) Referrals Cardiac Electrophysiology Referral I48.0 - Paroxysmal atrial fibrillation Patient Instructions: - Continue taking flecainide and Eliquis as prescribed. - Schedule and complete a home sleep study to assess for sleep apnea. - Follow up with the biomedical electronics technician for further evaluation and potential ablation procedure. Coding Level of Care Code Est Pt Level 4 (92003) Complex EM visit Add On G2211 Diagnoses Paroxysmal atrial fibrillation I48.0 Encounter for monitoring anti-arrhythmic therapy Z51.81; Z79.899 CPT Codes EKG - CPT: 44502-Uxmvznkxjrmduecao, Complete ([id number])
--- OUTSIDE RECORDS SUMMARY | 2025-08-14 14:22 | XMS_ITS | Patient Health Record ---
Author Organization [facility] Address [address] [place] [address] Care Team Providers Care Mold Sprayer Name Role Phone Forrest Butterfield MD Primary Care Provider Aiden Watson Unavailable [phone] Allergies Allergen (clinical drug ingredient) Drug/Non Drug [...] Problem Status W/U Status Risk Notes Problem [id number] Encounter for screening for malignant neoplasm of colon (Z12.11) Active confirmed Problem [id number] Preprocedural examination (Z01.818) Active confirmed Plan Of Treatment Future Test Test Name Order Date COLONOSCOPY 08/04/2020 Insurance Providers Payer Name Payer Address Payer Phone Subscriber Number Group Number Insured Name Patient Relationship to Insured Coverage Start Date Coverage End Date [facility] [address] [place] [address] [id number] HARVINDER DOMINGUEZ Self - patient is the insured Medical (General) History Medical History History ICD Code Kidney Stones--ESWL Enlarged prostate--seeing ur ologist for possible prosate biopsy later in 2019 Negative screening colonoscopy in 12/[address] Ness [place],DM,CVA,Lung disease,renal dise ase Surgical History Surgery Date(Month/Year) Prostate - laser surgery
== END 2025-08-14 13:35 | disposition home or self-care (01) ==
LOC: HO.HCS 12:57
PROVIDERS: PCP Internal Medicine; Visit Provider Internal Medicine
DX: I48.0 Paroxysmal atrial fibrillation (principal); Z51.81 Encounter for therapeutic drug level monitoring; Z79.899 Other long term (current) drug therapy
CPT/HCPCS: 93010; 99214; G2211

== ENCOUNTER → 2025-08-14 12:56 | Outpatient (BNVA) | payer MEDICARE, SELFPAY | PROVIDERS: PCP Internal Medicine; Visit Provider Internal Medicine | DX: Z51.81 Encounter for therapeutic drug level monitoring (principal); I48.0 Paroxysmal atrial fibrillation; R94.31 Abnormal electrocardiogram [ECG] [EKG]; R00.1 Bradycardia, unspecified; I45.19 Other right bundle-branch block; Z79.899 Other long term (current) drug therapy | CPT/HCPCS: 93005; 99212 ==

== ENCOUNTER 2025-09-02 06:45 | Outpatient (REF) | payer MEDICARE, SELFPAY ==
--- OUTSIDE RECORDS SUMMARY | 2025-09-02 06:49 | XMS_ITS | Patient Health Record ---
Author Organization [facility] Address [address] [place] [address] Care Team Providers Care Car Wash Manager Name Role Phone Forrest Butterfield MD Primary Care Provider Aiden Watson Unavailable [phone] Allergies Allergen (clinical drug ingredient) Drug/Non Drug [...] Problem Status W/U Status Risk Notes Problem Screening for malignant neoplasm of colon ([id number]) Encounter for screening for malignant neoplasm of colon (Z12.11) Active confirmed Problem Preprocedural examination ([id number]) Preprocedural examination (Z01.818) Active confirmed Plan Of Treatment Future Test Test Name Order Date COLONOSCOPY 08/04/2020 Insurance Providers Payer Name Payer Address Payer Phone Subscriber Number Group Number Insured Name Patient Relationship to Insured Coverage Start Date Coverage End Date [facility] [address] [place] [address] [id number] HARVINDER DOMINGUEZ Self - patient is the insured Medical (General) History Medical History History ICD Code Kidney Stones--ESWL Enlarged prostate--seeing ur ologist for possible prosate biopsy later in 2019 Negative screening colonoscopy in 12/[address] Ness Denies [place],DM,CVA,Lung disease,renal dise ase Surgical History Surgery Date(Month/Year) Prostate - laser surgery
[2025-09-02 08:39] LABS: PSA,Total (Free>4and<10) 10.68 ng/mL (0.00-4.00)
== END 2025-09-02 06:46 | disposition home or self-care (01) ==
LOC: HO.LAB 06:45
PROVIDERS: PCP Internal Medicine; Visit Provider Urology
DX: Z12.5 Encounter for screening for malignant neoplasm of prostate (principal); R97.20 Elevated prostate specific antigen [PSA]
CPT/HCPCS: 36415; 84153

== ENCOUNTER 2025-09-19 07:26 | Outpatient (REF) | payer MEDICARE, SELFPAY ==
--- NOTE | ~2025-09-19 | XR_ITS ---
EXAMINATION: XR FACIAL BONES CLINICAL INFORMATION: FOREIGN BODY- RT CHEEK COMPARISON: None available. TECHNIQUE: Ochoa, lateral, axial and Vanesa projection FINDINGS: No metallic or radiopaque foreign body. No acute cortical disruption. No air-fluid levels in the pneumatized paranasal sinuses. XR/XR facial bones <3V IMPRESSION: No metallic or radiopaque foreign body. Electronically signed by: Jovany Marsh MD 09/19/2025 07:59 AM EST
--- OUTSIDE RECORDS SUMMARY | 2025-09-19 07:29 | XMS_ITS | Patient Health Record ---
Author Organization [facility] Address [address] [place] [address] Care Team Providers Care Customer Assistance Representative Name Role Phone Forrest Butterfield MD Primary Care Provider Aiden Watson Unavailable [phone] Allergies Allergen (clinical drug ingredient) Drug/Non Drug [...] Problem Screening for malignant neoplasm of colon (135180546) Encounter for screening for malignant neoplasm of colon (Z12.11) Active confirmed Problem Preprocedural examination ([id number]) Preprocedural examination (Z01.818) Active confirmed Plan Of Treatment Future Test Test Name Order Date COLONOSCOPY 08/04/2020 Insurance Providers Payer Name Payer Address Payer Phone Subscriber Number Group Number Insured Name Patient Relationship to Insured Coverage Start Date Coverage End Date [facility] BLUE [facility] [address] [place] [address] [id number] HARVINDER DOMINGUEZ Self - patient is the insured Medical (General) History Medical History History ICD Code Kidney Stones--ESWL Enlarged prostate--seeing ur ologist for possible prosate biopsy later in 2019 Negative screening colonoscopy in 12/[address] Ness Denies [place],DM,CVA,Lung disease,renal dise ase Surgical History Surgery Date(Month/Year) Prostate - laser surgery
== END 2025-09-19 07:27 | disposition home or self-care (01) ==
LOC: HO.XRAY 07:26
PROVIDERS: PCP Internal Medicine; Visit Provider Radiology Diagnostic Radiology
DX: M79.5 Residual foreign body in soft tissue (principal)
CPT/HCPCS: 70140

== ENCOUNTER → 2025-09-19 07:45 | Outpatient (BNV) | payer MEDICARE, SELFPAY | PROVIDERS: PCP Internal Medicine; Visit Provider Radiology Diagnostic Radiology | DX: Z03.89 Encounter for observation for other suspected diseases and conditions ruled out (principal) | CPT/HCPCS: 70140 ==

== ENCOUNTER 2025-09-22 08:50 | Outpatient (REF) | payer MEDICARE, SELFPAY ==
--- NOTE | ~2025-09-22 | MR_ITS ---
EXAMINATION: MRI prostate without and with contrast. HISTORY: Elevated PSA. Laser ablation 4 enlarged prostate TECHNIQUE: 1.5T body coil survey of the pelvis was performed. Phase array coil imaging of the prostate was performed in multiplanar high resolution axial, coronal, sagittal fast spin echo T2 and axial T1 weighted imaging sequences. Axial diffusion imaging at intermediate and high field performed with ADC mapping. Next, 8.5 mL Gadavist was given by intravenous infusion, and dynamic axial imaging performed. COMPARISON: There are no prior studies for comparison. CLINICAL DATA: Most recent PSA: 11.33 ng/mL PSA Density: 0.30 ng/mL squared Prostate Biopsy: Laser ablation for enlarged prostate FINDINGS: Prostate size: 6.8 x 6.5 x 6.8 cm. Calculated prostate volume is 145 mL. Hemorrhage: None. Transitional Zone: Heterogeneous but no focal increased T2 signal. Peripheral Zone: T2: Increase bilateral peripheral T2 signal in the mid segment. PI-RADS: 4-5. Diffusion: Heterogenous increased bilateral diffusion peripheral zone from base to apex with intense diffusion active nodular areas of activity seen right and left apex and right mid segment. PI-RADS: 5. DEI: Multinodular areas of enhancement throughout the paravertebral and a transitional zone. BP-RADS: 5. Seminal Vesicles/Ejaculatory Ducts: Symmetric and normal in signal and caliber. Pelvic Lymph Nodes: No obturator or internal iliac lymph nodes meeting size criteria for adenopathy prominent bilateral inguinal canal containing fat and fluid on the right side.. There is extensive of prostate gland basal bladder greater on the right and left Marrow Signal: Normal marrow signal and enhancement without focal lesion identified. The left posterior capsular margin is indistinct especially on the left side. MR/MR Prostate wo/w con IMPRESSION: Bilateral peripheral zone nodular diffusion activity with early enhancement most prominent along the apex and the mid segment. PI-RADS 5: Very high (clinically significant cancer is highly likely to be present) PI-RADS Assessment Categories PI-RADS 1: Very low (clinically significant cancer is highly unlikely to be present) PI-RADS 2: Low (clinically significant cancer is unlikely to be present) PI-RADS 3: Intermediate (the presence of clinically significant cancer is equivocal) PI-RADS 4: High (clinically significant cancer is likely to be present) PI-RADS 5: Very high (clinically significant cancer is highly likely to be present) [employer]. MR Prostate Imaging Reporting and Data System version 2.1. [email or web address] Electronically signed by: Jonathan Woodruff MD 09/24/2025 02:28 PM NELLIE RP
--- OUTSIDE RECORDS SUMMARY | 2025-09-22 09:17 | XMS_ITS | Patient Health Record ---
Author Organization [facility] Address [address] [place] [address] Care Team Providers Care Oncology Specialist Name Role Phone Forrest Butterfield MD Primary Care Provider Aiden Watson Unavailable [phone] Allergies Allergen (clinical drug ingredient) Drug/Non Drug [...] Problem Screening for malignant neoplasm of colon (294771856) Encounter for screening for malignant neoplasm of colon (Z12.11) Active confirmed Problem Preprocedural examination (207417988249201) Preprocedural examination (Z01.818) Active confirmed Plan Of Treatment Future Test Test Name Order Date COLONOSCOPY 08/04/2020 Insurance Providers Payer Name Payer Address Payer Phone Subscriber Number Group Number Insured Name Patient Relationship to Insured Coverage Start Date Coverage End Date [facility]UE [facility] [address] [place] [address] [id number] HARVINDER DOMINGUEZ Self - patient is the insured Medical (General) History Medical History History ICD Code Kidney Stones--ESWL Enlarged prostate--seeing ur ologist for possible prosate biopsy later in 2019 Negative screening colonoscopy in 12/[address] Ness Denies [place],DM,CVA,Lung disease,renal dise ase Surgical History Surgery Date(Month/Year) Prostate - laser surgery
== END 2025-09-22 08:51 | disposition home or self-care (01) ==
LOC: HO.MRI 08:50
PROVIDERS: PCP Internal Medicine; Visit Provider Urology
DX: R97.20 Elevated prostate specific antigen [PSA] (principal)
CPT/HCPCS: 72197; 76377; A9585

== ENCOUNTER → 2025-09-22 09:07 | Outpatient (BNV) | payer MEDICARE, SELFPAY | PROVIDERS: PCP Internal Medicine; Visit Provider Radiology Diagnostic Radiology | DX: R97.20 Elevated prostate specific antigen [PSA] (principal); R91.8 Other nonspecific abnormal finding of lung field | CPT/HCPCS: 72197; 76377 ==

== ENCOUNTER 2025-10-01 13:14 | Outpatient (AMB) | payer MEDICARE, SELFPAY ==
--- NOTE | 2025-10-01 13:35 | MHC.OFFVIS ---
Intake Visit Reasons: 6M/PSA/Prostate MRI(set) Intake Note: Patient Is Present for PSA/Prostate MRI Urology Med: Dutasteride Antibiotic Allergy: None Blood Thinner: Eliquis Lab: PSA- 10.68 09/02/2025 Imaging: Prostate MRI 09/22/2025 PVR:72ML Patient reports that he does not fully empty bladder. Reports some kidney and bladder pain unsure if Dutasteride is causing this discomfort. Reports that bladder feels tight at times. Chartered Wealth Manager Required: No Accompanied by: Self / Same As Patient Allergies procaine (From Novocain) Allergy (Mild, Verified 10/01/25 13:44) RASH FRESH FRUIT Allergy (Severe, Uncoded 10/01/25 13:44) ANAPHYLAXIS HPI Comments Details: Carrington is a pleasant male. He is a patient of Dr. Chambers. he is seen for the following urologic condition - elevated PSA - lower urinary tract symptoms - nephrolithiasis Follow-up trial dutasteride Repeat prostate MRI Prostate size: 6.8 x 6.5 x 6.8 cm. Calculated prostate volume is 145 mL PI-RADS 5 area identified Prior cystoscopy Mild prostatic regrowth On Eliquis for AFib Had complications with original prostate procedure in 2012 Lower urinary tract symptoms Laser prostatectomy 04/2013 - postprocedure bleeding and stayed in hospital for 5 days Has had good stability with effective urination Minimal nocturia Elevated PSA - Biopsy 01/31 Negative MRI - 06/03 - 150 g prostate, PI-RADS 3 intermediate suspicion 1 area otherwise no prominent changes PSA 2020 nicko from 8-12.5 - 2020 F 22%, 06/03 12.9, 09/03 12, 10/05 11, 05/06 13.8, 09/06 10.7 Prostate biopsy - performed 01/31 12.52 Negative Tried finasteride - January 2021 but did not tolerate Understands there is a risk of delay in diagnosis Nephrolithiasis Stable ultrasound with renal cyst [facility] Medical History Right inguinal hernia History of non-ST elevation myocardial infarction (NSTEMI) Urgency of micturition History of renal calculi Elevated PSA Post-operative nausea and vomiting Surgical History History of right inguinal hernia repair S/P right inguinal hernia repair (07/21/21) History of tonsillectomy History of prostate surgery Hx of colonoscopy Hx of lithotripsy Family History Mother No problems noted. Father No problems noted. Social History Housing: House Alcohol intake: current Alcohol intake frequency: holidays/special occasions only Comment: medicated, see MAR Patient Tobacco Use Status: Never used Tobacco e-Cigarette/Vaping Use: Never Used Second Hand Smoke Exposure: No service: No Current occupational status: retired Cognitive needs: No Hearing needs: No Vision needs: No Review of Systems Const Denies chills and Denies fever(s) Card Reports no additional complaints and Denies syncope Resp Denies cough GI Denies abdominal pain and Denies heartburn Reports as per HPI and Denies change in libido Neuro Denies syncope Psych Denies change in libido Endo Denies change in libido Physical Exam Const General: cooperative, healthy appearing, comfortable and no acute distress Orientation/consciousness: patient oriented x3 HEENT Face and sinus: Yes normal facial exam Mouth: moist mucous membranes Neck Neck: Yes normal visual inspection, Yes full ROM and Yes trachea midline Chest Chest palpation & inspection: normal inspection of the chest Resp Effort & Inspection: normal respiratory effort, able to speak in complete sentences and no respiratory distress GI Inspection: Yes normal to inspection Back/Spine/Pelvis Cervical Spine: normal cervical lordosis Thoracic/Lumbar Spine: thoracic and lumbar spine normal to inspection Skin General skin exam: no rashes or lesions noted Neuro General: patient oriented x3, gait normal, tone normal and moves all extremities Extrem General: Yes normal to inspection and Yes capillary refill normal Office Procedures Post Void Residual Post Residual Void Post Void Residual (PVR): 72 72041-Aemg Void Residual by ultrasound Assessment & Plan Assessment & Plan (1) BPH w urinary obs/LUTS: Code(s): N40.1 - Benign prostatic hyperplasia with lower urinary tract symptoms; N13.8 - Other obstructive and reflux uropathy Category: Medical Plan Risks and benefits regarding trans rectal ultrasound with prostate biopsy were discussed. Options of continued surveillance, no treatment and biopsy were offered. The risks include but are not limited to, urinary tract infection, sepsis, difficulty urinating, bleeding into the rectum or bladder that requires intervention and transfusion,and failure to diagnose prostate cancer. The patient understands the options and the risks involved. They wish to proceed. Printed information was provided to ensure he remains off anticoagulation for the appropriate length of time. He may require cardiology or PCP clearance. An antibiotic will be administered prior to, and following the procedure Orders: Orders AMB Post Void Residual by ultrasound Today N40.0 - Benign prostatic hyperplasia without lower urinary tract symptoms Medications: New levofloxacin take 1 tablet day before procedure, 1 tablet day of procedure and 1 tablet day after procedure 500 mg PO DAILY 3 tabs 0RF 3 days R97.20 - Elevated prostate specific antigen [PSA] Patient Instructions: This note is constructed using voice recognition software. While every effort has been made to ensure accuracy pharmaceutical laboratory technician errors may have been included. Imaging studies, laboratory and physical exam results were discussed and reviewed in detail. No major barriers to patient understanding were identified. An opportunity to ask questions regarding the treatment plan was provided. All questions were answered. The patient expressed understanding and agreement with the above treatment plan. The patient is aware they should contact our office by phone for worsening of their current condition or the appearance of new urologic symptoms. Compliance is encouraged with any medications and followup testing that is ordered. It is a privilege to participate in the urologic care of your patient. If you have any questions or concerns regarding treatment for the above conditions, or other urologic issues, please do not hesitate to contact me. The office telephone contact is [phone]. Sincerely, Dr Kelton Griffith MD, [facility] - Urology Compassionate Specialist Care for the Genitourinary System Coding Level of Care Code Est Pt Level 4 (30718) Diagnoses BPH w urinary obs/LUTS N40.1; N13.8 CPT Codes Post Residual Void - PVR CPT Code: 98736-Oeum Void Residual by ultrasound ([id number])
--- OUTSIDE RECORDS SUMMARY | 2025-10-02 01:08 | XMS_ITS | Patient Health Record ---
Author Organization [facility] Address [address] [place] [address] Care Team Providers Care Boxing Promoter Name Role Phone Forrest Butterfield MD Primary Care Provider Aiden Watson Unavailable [phone] Allergies Allergen (clinical drug ingredient) Drug/Non Drug Allergy documented on EMR Reaction Allergy Type Onset Date Status Novocain Unknown Drug Allergy Active Dust Mite Mixed Allergen Ext Unknown Drug Allergy Active Reason For Referral No Information Medications Medication SIG (Take, Route, Frequency, Duration) Notes Start Date End Date Status Multivitamin Active Immunizations Vaccine Route Administration Date Status Comme nts Influenza Unknown 08/04/2020 Refused Social History Tobacco Use: Social History Observation Description Date Details (start date - stop date) Never Smoker NA - NA Social History Drugs/Alcohol: Social Info Question Answer Notes Alcohol Screen Did you have a drink containing alcohol in the past year? Yes How often did you have a drink containing alcohol in the past year? 2 to 4 times a month (2 points) How many drinks did you have on a typical day when you were drinking in the past year? 1 or 2 drinks (0 point) How often did you have 6 or more drinks on one occasion in the past year? Never (0 point) Points 2 Interpretation Negative Tobacco Use: Social Info Question Answer Notes Tobacco Use/Smoking Patient is a nonsmoker Additional Details Category Social Info Options Details Miscellaneous: Marital status: single Occupation: Electronic Techn ician Section Notes: Nonsmoker; no sig. alcohol Problems Problem Type SNOMED Code ICD Code Onset Dates Problem Status W/U Status Risk Notes Problem Screening for malignant neoplasm of colon (397819609) Encounter for screening for malignant neoplasm of colon (Z12.11) Active confirmed Problem Preprocedural examination (508075315323810) Preprocedural examination (Z01.818) Active confirmed Plan Of Treatment Future Test Test Name Order Date COLONOSCOPY 08/04/2020 Insurance Providers Payer Name Payer Address Payer Phone Subscriber Number Group Number Insured Name Patient Relationship to Insured Coverage Start Date Coverage End Date [facility] [address] [place] [address] [id number] HARVINDER DOMINGUEZ Self - patient is the insured Medical (General) History Medical History History ICD Code Kidney Stones--ESWL Enlarged prostate--seeing ur ologist for possible prosate biopsy later in 2019 Negative screening colonoscopy in 12/[address] Grover Vides [place],DM,CVA,Lung disease,renal dise ase Surgical History Surgery Date(Month/Year) Prostate - laser surgery
== END 2025-10-01 14:03 | disposition home or self-care (01) ==
LOC: HO.HUSH 13:14
PROVIDERS: PCP Internal Medicine; Visit Provider Urology
DX: N40.1 Benign prostatic hyperplasia with lower urinary tract symptoms (principal); N13.8 Other obstructive and reflux uropathy
CPT/HCPCS: 99214

== ENCOUNTER → 2025-10-01 13:14 | Outpatient (BNVA) | payer MEDICARE, SELFPAY | PROVIDERS: PCP Internal Medicine; Visit Provider Urology | DX: N40.1 Benign prostatic hyperplasia with lower urinary tract symptoms (principal); N13.8 Other obstructive and reflux uropathy; R97.20 Elevated prostate specific antigen [PSA]; Z87.442 Personal history of urinary calculi | CPT/HCPCS: 51798; 99212 ==

== ENCOUNTER → 2025-10-21 10:36 | Outpatient (REF) | payer MEDICARE, SELFPAY | LOC: HO.SL 10:36 | PROVIDERS: PCP Internal Medicine; Visit Provider Internal Medicine | DX: G47.33 Obstructive sleep apnea (adult) (pediatric) (principal) | CPT/HCPCS: 95806 ==

== ENCOUNTER → 2025-10-21 11:06 | Outpatient (BNV) | payer MEDICARE, SELFPAY | PROVIDERS: PCP Internal Medicine; Visit Provider Psychiatry & Neurology Neurology | DX: G47.33 Obstructive sleep apnea (adult) (pediatric) (principal) | CPT/HCPCS: 95806 ==

== ENCOUNTER 2025-10-23 10:28 | Outpatient (AMB) | payer MEDICARE, SELFPAY ==
[2025-10-23 10:31] VITALS: BP 116/70; PULSE 71; TEMP 36.4; O2SAT 96; BMI 28.8
--- NOTE | 2025-10-23 10:31 | AM.OFFWIN_ITS ---
Intake Vital Signs 10/23/25 10:31 Height 5 ft 9 in Weight 195 lb BMI 28.8 BP 116/70 Blood Pressure Location Rt brachial Position Sitting Pulse 71 Pulse Source Pulse Oximeter Temp 97.6 F Temp Source Oral Pulse Oximetry (%) 96 Oxygen Delivery Method Room Air Intake Visit Reasons: EP thinks needle in left wrist from IV Intake Note: Patient presents with concern for possible needle in place LT wrist s/p IV x3 days. Reports he was undergoing a cardiac ablation at the end of September and the procedure had to be stopped d/t probe puncturing a vein in his pericardium, ended up with a pericardial effusion and admitted x3 days, IV in place left wrist- removed 10/11 states area is becoming sore. 11/24/25 scheduled for redo of cardiac ablation. Pt states he had to r/s today's prostate bx with Dr Chad WALLS for 10/28 Patient Tobacco Use Status: Never used Tobacco Allergies procaine (From Novocain) Allergy (Mild, Verified 10/23/25 10:39) RASH FRESH FRUIT Allergy (Severe, Uncoded 10/23/25 10:39) ANAPHYLAXIS Do you need a note to return to daycare/school/sports/work: No HPI HPI Comments History of Present Illness Details 70 y/o Male presents to the walk[facility] clin [facility] with c/o left hand/wrist tenderness at a previous IV site. Pt reports he was admitted for 4 days for a pr ocedure and had an IV placed in the left hand/wrist region, through which he received IV sedation, fluids, and antibiotics. A few days after discharge, he noticed a small lump/bump at the IV site. He is concerned that an ?IV was left inside.? Symptoms have been present for ~2 weeks. Denies fevers, chills, nausea, vomiting. Denies redness, warmth, drainage. Mild localized tenderness only. No functional limitations reported. He is currently taking Eliquis for Afib. [facility] Medical History (Updated 10/23/25 @ 11:08 by Leonila Murrell NP) Left hand pain Right inguinal hernia History of non-ST elevation myocardial infarction (NSTEMI) Urgency of micturition History of renal calculi Elevated PSA Post-operative nausea and vomiting Surgical History History of right inguinal hernia repair S/P right inguinal hernia repair (07/21/21) History of tonsillectomy History of prostate surgery Hx of colonoscopy Hx of lithotripsy Family History Mother No problems noted. Father No problems noted. Social History Housing: House Alcohol intake: current Alcohol intake frequency: holidays/special occasions only Comment: medicated, see MAR Patient Tobacco Use Status: Never used Tobacco e-Cigarette/Vaping Use: Never Used Second Hand Smoke Exposure: No service: No Current occupational status: retired Cognitive needs: No Hearing needs: No Vision needs: No Review of Systems Const All systems reviewed & are unremarkable except as noted in HPI and below Physical Exam Vital Signs: Last Vital Signs Temp 97.6 F 10/23/25 10:31 Pulse 71 10/23/25 10:31 BP 116/70 10/23/25 10:31 Pulse Ox 96 10/23/25 10:31 Oxygen Delivery Method Room Air 10/23/25 10:31 BMI result Body Mass Index 28.8 Const General: no acute distress Nutritional Appearance: well nourished Orientation/consciousness: patient oriented x3 Neuro General: patient oriented x3, gait normal and moves all extremities Extrem Other: Left hand/wrist: Small palpable subcutaneous nodule at prior IV site; non- erythematous, no warmth, no fluctuance, no drainage. Mild TTP. No streaking. No edema of hand/wrist. No crepitus. Skin intact. ROM: Full active ROM of wrist and fingers without pain. Neurovascular: Cap refill < 2 sec. Radial pulse 2+. Sensation intact. Psych Speech and movement: Normal speech and movement present Assessment & Plan Assessment & Plan (1) Left hand pain: Code(s): M79.642 - Pain in left hand Plan: Superficial thrombophlebitis / localized vein irritation at prior IV site ? likely resolving. Clinical exam not consistent with retained IV catheter, infection, or abscess. Anticoagulated (Eliquis) for Afib ? may contribute to prolonged tenderness/bruising pattern but currently stable. Reassurance that no retained IV catheter is present based on exam. Warm compresses to the area 10?15 minutes, 2?3? daily. Monitor for new redness, warmth, increased pain, swelling, fevers, or streaking ? instructed to return immediately if these occur. Continue Eliquis as prescribed; no contraindication noted today. Coding Level of Care Code Est Pt Level 4 (10631) Diagnoses Left hand pain M79.642 Time Spent (min) 20
== END 2025-10-23 10:59 | disposition home or self-care (01) ==
PROVIDERS: PCP Internal Medicine; Visit Provider Nurse Practitioner Family
DX: M79.642 Pain in left hand (principal)

== ENCOUNTER 2025-10-28 07:40 | Outpatient (REF) | payer MEDICARE, SELFPAY ==
--- OUTSIDE RECORDS SUMMARY | 2025-10-28 07:44 | XMS_ITS | Patient Health Record ---
Author Organization [facility] Address [address] [place] [address] Care Team Providers Care Mattress Stuffer Name Role Phone Forrest Butterfield MD Primary Care Provider Aiden Watson Unavailable [phone] Allergies Allergen (clinical drug ingredient) Drug/Non Drug [...] Problem Screening for malignant neoplasm of colon (980447775) Encounter for screening for malignant neoplasm of colon (Z12.11) Active confirmed Problem Preprocedural examination (008510962596612) Preprocedural examination (Z01.818) Active confirmed Plan Of Treatment Future Test Test Name Order Date COLONOSCOPY 08/04/2020 Insurance Providers Payer Name Payer Address Payer Phone Subscriber Number Group Number Insured Name Patient Relationship to Insured Coverage Start Date Coverage End Date [facility] [address] [place] [address] [id number] HARVINDER DOMINGUEZ Self - patient is the insured Medical (General) History Medical History History ICD Code Kidney Stones--ESWL Enlarged prostate--seeing ur ologist for possible prosate biopsy later in 2019 Negative screening colonoscopy in 12/[address] Grover Vides [place],DM,CVA,Lung disease,renal dise ase Surgical History Surgery Date(Month/Year) Prostate - laser surgery
[2025-10-28] MEDS: Lidocaine HCl 1 % MPF 5 ML VIAL 10 ML SUBCUT (08:52)
== END 2025-10-28 07:41 | disposition home or self-care (01) ==
LOC: HO.US 07:40
PROVIDERS: Visit Provider Urology
DX: M79.642 Pain in left hand (principal); Z79.01 Long term (current) use of anticoagulants
CPT/HCPCS: 55700; 76942; 88305; 99212; J2003